=== PATIENT | male | born 1960 | race Caucasian/White ===

== ENCOUNTER 2020-05-14 14:44 | Emergency (ER) | payer MEDICARE, MEDICAID, SELFPAY ==
[2020-05-14 14:53] VITALS: BP 104/73; PULSE 83; RESP 20; TEMP 36.4; O2SAT 97; BMI 39.6
[2020-05-14] MEDS: Lidocaine 4 % Patch ADH..PATCH 1 PATCH TRANSDERMA (15:50)
[2020-05-14] MEDS: Ketorolac Tromethamine 30 MG/ML VIAL IM (15:50)
[2020-05-14 16:12] LABS: MANUAL DIFF FLAG NO
[2020-05-14 16:15] LABS: Basophils Absolute Auto 0.1 X10*3/uL (0.0-0.2); Basophils Percent Auto 0.4 % (0-2); Eosinophils Absolute Auto 0.2 X10*3/uL (0.0-0.4); Eosinophils Percent Auto 1.1 % (0-4); Hematocrit 38.8 % (42-52); Hemoglobin 12.7 g/dl (14.0-18.0); Imm Gran Abs Auto 0.02 X10*3/uL (0.00-0.03); Imm Gran Pct Auto 0.2 % (0.0-0.4); Lymphocytes Absolute Auto 1.8 X10*3/uL (1.2-4.9); Lymphocytes Percent Auto 13.9 % (20-40); Mean Corpuscular HGB Conc 32.7 g/dl (31.0-36.0); Mean Corpuscular Hemoglobin 27.6 pg (27.0-33.0); Mean Corpuscular Volume 84.3 fL (80-98); Mean Platelet Volume 10.3 fL (9.4-12.4); Monocytes Absolute Auto 0.7 X10*3/uL (0.1-1.2); Monocytes Percent Auto 5.1 % (2-11); Neutrophils Absolute Auto 10.5 X10*3/uL (2.0-8.3); Neutrophils Percent Auto 79.3 % (45-73); Platelet Count 195 X10*3/uL (160-400); Red Cell Distribution Width 15.3 % (11.0-16.0); White Blood Count 13.2 X10*3/uL (4.8-10.8)
[2020-05-14 16:16] LABS: Appearance Urine CLEAR; Color Urine YELLOW; Glucose Urine UA >=1000 MG/DL (NEG); Leukocyte Esterase Urine NEG (NEG); Nitrite Urine NEG (NEG); Specific Gravity - Urine 1.025 (1.005-1.025); Urine Blood NEG (NEG); Urine Ketones NEG (NEG); Urine Protein NEG (NEG-TRACE)
[2020-05-14 16:23] LABS: RBC Urine 0-2 /HPF (0); Squamous Epithelial Cell Urine 1+ /LPF; WBC Urine 0-2 /HPF (0-4)
[2020-05-14 16:35] LABS: Alanine Aminotransferase 14 U/L (0-40); Albumin Level 4.4 g/dL (3.5-5.0); Alkaline Phosphatase 92 U/L (39-117); Anion Gap 12 (12-20); Aspartate Amino Transferase 14 U/L (5-37); Bilirubin Direct < 0.2 mg/dL (0.0-0.5); Bilirubin Total 0.4 mg/dL (0.0-1.0); Blood Urea Nitrogen 14 mg/dL (9-16); Calcium 9.1 mg/dL (8.4-10.2); Carbon Dioxide 28 mmol/L (22-29); Chloride 106 mmol/L (96-108); Creatinine Clr Calc Pharmacy 96.7; Estimated Glomerular Filt Rate > 60; Glucose Random 127 mg/dL (60-115); Lipase 31 U/L (8-78); Potassium 4.5 mmol/l (3.3-5.1); Sodium 141 mmol/L (135-145); Total Protein 7.2 g/dL (6.5-8.0)
[2020-05-14 17:25] VITALS: BP 133/75; PULSE 68; RESP 18; TEMP 36.3; O2SAT 99
--- NOTE | 2020-05-14 17:54 | ED.ABDPAIN ---
HPI - Abdominal Pain General Chief Complaint: Abdominal Pain Stated Complaint: leg pain Time Seen by Provider: 05/14/20 15:18 Source: patient Mode of arrival: ambulatory Limitations: no limitations History of Present Illness HPI narrative: Left-sided flank pain for the past 3 days MD elicited complaint: flank pain Pertinent past history: kidney stones Onset (ago): day(s) Pain Consistency: constant Location: diffuse, L flank and R flank Severity: moderate Quality: aching Exacerbating factors: movement Relieving factors: rest Treatments prior to arrival: other (Has not tried anything OTC) Related Data Home Medications Medication Instructions Recorded Confirmed atorvastatin 1 tab PO DAILY 05/14/20 05/14/20 buprenorphine-naloxone [Suboxone] 1 strip SUBLINGUAL BID 05/14/20 05/14/20 gabapentin 1 tab PO TID 05/14/20 05/14/20 ibuprofen 1 tab PO TID 05/14/20 05/14/20 paroxetine HCl 1 tab PO QAM 05/14/20 05/14/20 trazodone 1 tab PO BEDTIME 05/14/20 05/14/20 Previous Rx's Medication Instructions Recorded pioglitazone 45 mg tablet 45 mg PO DAILY 90 Days #90 tab 05/07/20 omeprazole 20 mg capsule,delayed 20 mg PO DAILY 90 Days #90 cap 05/09/20 release cyclobenzaprine 10 mg PO BEDTIME PRN #20 tab 05/14/20 lidocaine 1 patch TOPICAL Q24H PRN #10 ea 05/14/20 Allergies Allergy/AdvReac Type Severity Reaction Status Date / Time No Known Allergies Allergy Verified 05/14/20 17:48 [No Known Allergies*] Review of Systems Review of Systems Constitutional: No Weight loss, No Fever, No Chills, No Night Sweats, No Fatigue, No Malaise ENT/Mouth: No Hearing loss, No Ear Pain, No Nasal Congestion, No Sinus Pain, No Hoarseness, No sore throat, No Rhinorrhea, No Swallowing Difficulty Eyes: No Eye Pain, No Swelling, No Redness, No Foreign Body, No Discharge, No Vision Changes Cardiovascular: No Chest Pain, No SOB, No Dyspnea on Exertion, No Orthopnea, No Edema, No Palpitations Respiratory: No Cough, No Sputum, No Wheezing, No Smoke Exposure, No Dyspnea Gastrointestinal: No Nausea, No Vomiting, No Diarrhea, No Constipation, No abdominal Pain, No Hematochezia, No Melena, + flank pain Genitourinary: No Dysuria, No Urinary Frequency, No Hematuria, No Urinary Incontinence, No Urgency, No Urinary Flow Changes, No Hesitancy Musculoskeletal: No joint pain, No Myalgias, No Joint Swelling Skin: No Skin Lesions, No rash Neuro: No Weakness, No Numbness, No Paresthesias, No Loss of Consciousness, No Dizziness, No Headache Psych: No Anxiety/Panic, No Depression, No SI/HI/AH/VH, No Social Issues, Heme/Lymph: No Bruising, No Bleeding,No Lymphadenopathy Endocrine: No Polyuria, No Polydipsia, No Temperature Intolerance Yes all other systems are reviewed and are negative Physical Exam Vital Signs: Vital Signs: Vital Signs Temp Pulse Resp BP Pulse Ox 05/14/20 17:25 97.4 F 68 18 133/75 99 05/14/20 14:53 97.6 F 83 20 104/73 97 Body Mass Index 39.6 Const: General: cooperative and healthy appearing; No acute distress or intoxicated appearing Nutritional Appearance: average body habitus Orientation/consciousness: patient oriented x3 HENMT: Head: Yes normal to inspection Ears: hearing grossly normal bilaterally Eyes: General: appearance normal, both eyes and all related structures Visual Francis: normal visual francis by confrontation Neck: Neck: Yes normal visual inspection and No tender Thyroid: Thyroid normal Chest: Chest palpation & inspection: normal inspection of the chest Resp: Effort & Inspection: normal respiratory effort Cardio: Jugular venous distension: no JVD GI: Inspection: Yes normal to inspection Percussion: Yes normal to percussion Auscultation: normal bowel sounds : General: Yes CVA tenderness and Yes no CVA tenderness Back/Spine/Pelvis: Other: Bilateral flank pain, pain reproducible in the paraspinal muscle regions bilaterally. No midline tenderness palpation. No step-off. Back: no CVA tenderness and CVA tenderness Skin: General skin exam: no rashes or lesions noted Neuro: General: patient oriented x3 Extrem: General: Yes normal to inspection Course Course Course Narrative: Labs show slight leukocytosis of 13 previous a baseline 11-12. Otherwise no derangement. CT of the abdomen pelvis shows no acute stone. Urine clean. Pain etiology musculoskeletal. Will discharge home with muscle relaxant and lidocaine patch. No low back pain red flags. No sinus symptoms saddle anesthesia/ cord compression. Ambulatory with steady straight gait. Stable for discharge. Findings/plan/follow-up reviewed. Agreeable. MDM - Abdominal Pain Differential Diagnosis Differential diagnosis: Likely abdominal pain, calculus of kidney, constipation and renal colic; Unlikely aortic dissection, acute appendicitis, bowel perforation, diverticulitis, endometriosis, gastroenteritis, gastritis, mesenteric ischemia, pancreatitis, peptic ulcer disease and small bowel obstruction Differential diagnosis narrative:: Lumbar muscle strain, osteoarthritis, DJD Lab Data Result diagrams: 05/14/20 16:08 05/14/20 16:08 Labs: Lab Results 05/14/20 05/14/20 05/14/20 Range/Units 16:08 16:08 16:08 WBC 13.2 H (4.8-10.8) X10*3/uL RBC 4.60 (4.60-5.80) X10*6/uL Hgb 12.7 L (14.0-18.0) g/dl Hct 38.8 L (42-52) % MCV 84.3 (80-98) fL MCH 27.6 (27.0-33.0) pg MCHC 32.7 (31.0-36.0) g/dl RDW 15.3 (11.0-16.0) % Plt Count 195 (160-400) X10*3/uL MPV 10.3 (9.4-12.4) fL Immature Gran % (Auto) 0.2 (0.0-0.4) % Neut % (Auto) 79.3 H (45-73) % Lymph % (Auto) 13.9 L (20-40) % [place] % (Auto) 5.1 (2-11) % Eos % (Auto) 1.1 (0-4) % Baso % (Auto) 0.4 (0-2) % Lymph # (Auto) 1.8 (1.2-4.9) X10*3/uL [place] # (Auto) 0.7 (0.1-1.2) X10*3/uL Eos # (Auto) 0.2 (0.0-0.4) X10*3/uL Baso # (Auto) 0.1 (0.0-0.2) X10*3/uL Abs Immat Gran (auto) 0.02 (0.00-0.03) X10*3/uL Absolute Neuts (auto) 10.5 H (2.0-8.3) X10*3/uL Absolute Nucleated RBC 0.000 (0.0-0.012) X10*3/uL Nucleated RBC % (auto) 0.0 (0.0-0.2) /100WBC Sodium 141 (135-145) mmol/L Potassium 4.5 (3.3-5.1) mmol/l Chloride 106 (96-108) mmol/L Carbon Dioxide 28 (22-29) mmol/L Anion Gap 12 (12-20) BUN 14 (9-16) mg/dL Creatinine 0.94 (0.5-1.4) mg/dL Estim Creat Clear Calc 96.7 Estimated GFR > 60 Random Glucose 127 H (60-115) mg/dL Calcium 9.1 (8.4-10.2) mg/dL Total Bilirubin 0.4 (0.0-1.0) mg/dL Direct Bilirubin < 0.2 (0.0-0.5) mg/dL AST 14 (5-37) U/L ALT 14 (0-40) U/L Alkaline Phosphatase 92 (39-117) U/L Total Protein 7.2 (6.5-8.0) g/dL Albumin 4.4 (3.5-5.0) g/dL Lipase 31 (8-78) U/L Urine Color YELLOW Urine Appearance CLEAR Urine pH 6.0 (5.0-8.0) Ur Specific [place] 1.025 (1.005-1.025) Urine Protein NEG (NEG-TRACE) MG/DL Urine Glucose (UA) >=1000 H (NEG) MG/DL Urine Ketones NEG (NEG) MG/DL Urine Blood NEG (NEG) Urine Nitrite NEG (NEG) Ur Leukocyte Esterase NEG (NEG) Urine RBC 0-2 (0) /HPF Urine WBC 0-2 (0-4) /HPF Ur Squamous Epith Cells 1+ /LPF Urine Bacteria NONE /LPF Imaging Data CT scan - abdomen: Radiologist's impression: [address] [address] [address] Scan Report Signed Patient: Nathaniel Lloyd#: [id number] : 9Acct:[id number] Age/Sex: 60 / MADM Date: 05/14/20 Loc: HO.ED Attending Dr: Ordering Physician: Son Hernandez NP Date of Service: 05/14/20 Procedure(s): CT abdomen pelvis wo con Accession Number(s): [id number] cc: Son Hernandez NP~ EXAMINATION: CT ABDOMEN AND PELVIS WITHOUT CONTRAST CLINICAL INFORMATION: Abdominal / flank pain. COMPARISON: 02/13/2020 TECHNIQUE: Multidetector volumetric imaging was performed from the superior aspect of the liver through the pubic symphysis. Sagittal and coronal reformatted images were obtained on the technologist's workstation. This CT examination was performed using dose optimization techniques as appropriate, variously including the following: *Automated exposure control *Adjustment of mA and/or kV according to patient size (this includes techniques or standardized protocols for targeted exams where dose is matched to indication/reason for exam; i.e. extremities or head) *Use of iterative reconstruction technique DLP: 643 mGy-cm FINDINGS: LUNG BASES: The visualized lung bases are unremarkable. LIVER, GALLBLADDER, AND BILIARY TREE: The liver is normal in size, shape, and attenuation. No focal hepatic lesion or biliary ductal dilatation is present. The gallbladder is unremarkable with no evidence of radiopaque gallstones, gallbladder wall thickening, or obvious pericholecystic inflammatory changes. PANCREAS: Unremarkable. SPLEEN: Unremarkable. ADRENAL GLANDS: Unremarkable. KIDNEYS AND URETERS: The kidneys are normal in size, shape, and attenuation. No hydronephrosis, hydroureter, or calculi seen. No perinephric stranding. BLADDER: Unremarkable. GASTROINTESTINAL TRACT: The small and large bowel are unremarkable. The appendix is unremarkable. ABDOMINAL WALL: No significant hernia is appreciated. LYMPH NODES: Normal. VASCULAR: Aorta is atherosclerotic. PELVIC VISCERA: Unremarkable. OSSEOUS STRUCTURES: Unremarkable. IMPRESSION: No acute findings. Dictated By:LIAT ANTUNEZ MD Signed By:<Electronically signed by LIAT ANTUNEZ MD in OV>05/14/201857 DD/ 21 TD/TT: [place] Representative: JUNITO Discharge Plan Discharge Clinical Impression: Acute flank pain Patient Disposition: Home, Self-Care Instructions: Acute Low Back Pain (ED) Prescriptions: New lidocaine 4 % adhesive patch,medicated 1 patch topical Q24H PRN (Reason: pain) Qty: 10 RF: 1 cyclobenzaprine 10 mg tablet 10 mg PO BEDTIME PRN (Reason: muscle spasm) Qty: 20 RF: 0 No Action pioglitazone 45 mg tablet 45 mg PO DAILY 90 Days Qty: 90 RF: 3 omeprazole 20 mg capsule,delayed release(DR/EC) 20 mg PO DAILY 90 Days Qty: 90 RF: 3 atorvastatin 40 mg tablet 1 tab PO DAILY RF: 0 gabapentin 600 mg tablet 1 tab PO TID RF: 0 trazodone 50 mg tablet 1 tab PO BEDTIME RF: 0 paroxetine HCl 20 mg tablet 1 tab PO QAM RF: 0 ibuprofen 600 mg tablet 1 tab PO TID RF: 0 buprenorphine-naloxone [Suboxone] 8-2 mg film 1 strip sublingual BID RF: 0 Interventions: ED Discharge Assessment Last Done: 05/14/20 19:55 Discharge Date/Time: 05/14/20 20:00 [facility] Past Medical History Medical History (Updated 05/15/20 @ 00:07 by Naheed Dutton) Diabetes mellitus GERD (gastroesophageal reflux disease) Social History Social History Alcohol intake: never Smoking Status: Light tobacco smoker Smoked in Last 30 Days: Yes Use of substances other than those prescribed or required for medical reasons: No Advance Directives: No Advance Directives Information Provided: Yes
--- NOTE | 2020-05-14 18:22 | CT_ITS ---
EXAMINATION: CT ABDOMEN AND PELVIS WITHOUT CONTRAST CLINICAL INFORMATION: Abdominal / flank pain. COMPARISON: 02/13/2020 TECHNIQUE: Multidetector volumetric imaging was performed from the superior aspect of the liver through the pubic symphysis. Sagittal and coronal reformatted images were obtained on the technologist's workstation. This CT examination was performed using dose optimization techniques as appropriate, variously including the following: *Automated exposure control *Adjustment of mA and/or kV according to patient size (this includes techniques or standardized protocols for targeted exams where dose is matched to indication/reason for exam; i.e. extremities or head) *Use of iterative reconstruction technique DLP: 643 mGy-cm FINDINGS: LUNG BASES: The visualized lung bases are unremarkable. LIVER, GALLBLADDER, AND BILIARY TREE: The liver is normal in size, shape, and attenuation. No focal hepatic lesion or biliary ductal dilatation is present. The gallbladder is unremarkable with no evidence of radiopaque gallstones, gallbladder wall thickening, or obvious pericholecystic inflammatory changes. PANCREAS: Unremarkable. SPLEEN: Unremarkable. ADRENAL GLANDS: Unremarkable. KIDNEYS AND URETERS: The kidneys are normal in size, shape, and attenuation. No hydronephrosis, hydroureter, or calculi seen. No perinephric stranding. BLADDER: Unremarkable. GASTROINTESTINAL TRACT: The small and large bowel are unremarkable. The appendix is unremarkable. ABDOMINAL WALL: No significant hernia is appreciated. LYMPH NODES: Normal. VASCULAR: Aorta is atherosclerotic. PELVIC VISCERA: Unremarkable. OSSEOUS STRUCTURES: Unremarkable. IMPRESSION: No acute findings.
== END 2020-05-14 20:00 | disposition home or self-care (01) ==
PROVIDERS: Nurse Practitioner Primary Care; Emergency Provider Internal Medicine
DX: R10.9 Unspecified abdominal pain (principal); M54.5 Low back pain; E11.9 Type 2 diabetes mellitus without complications; K21.9 Gastro-esophageal reflux disease without esophagitis; Z79.899 Other long term (current) drug therapy; F17.210 Nicotine dependence, cigarettes, uncomplicated; Z87.442 Personal history of urinary calculi
CPT/HCPCS: 36415; 74176; 80048; 80076; 81001; 83690; 85025; 96372; 99284; J1885

== ENCOUNTER 2020-08-21 19:31 | Emergency (ER) | payer MEDICARE, MEDICAID, SELFPAY ==
[2020-08-21 20:01] VITALS: BP 127/71; PULSE 84; RESP 18; TEMP 36.6; O2SAT 96; BMI 38.3
[2020-08-21 20:27] LABS: MANUAL DIFF FLAG NO
[2020-08-21 20:29] LABS: Basophils Percent Auto 0.4 % (0-2); Eosinophils Absolute Auto 0.1 X10*3/uL (0.0-0.4); Eosinophils Percent Auto 0.7 % (0-4); Hematocrit 38.7 % (42-52); Hemoglobin 12.8 g/dl (14.0-18.0); Imm Gran Abs Auto 0.03 X10*3/uL (0.00-0.03); Imm Gran Pct Auto 0.3 % (0.0-0.4); Lymphocytes Absolute Auto 1.7 X10*3/uL (1.2-4.9); Mean Corpuscular HGB Conc 33.1 g/dl (31.0-36.0); Mean Corpuscular Hemoglobin 27.7 pg (27.0-33.0); Mean Corpuscular Volume 83.8 fL (80-98); Mean Platelet Volume 9.9 fL (9.4-12.4); Monocytes Absolute Auto 0.4 X10*3/uL (0.1-1.2); Monocytes Percent Auto 3.6 % (2-11); Neutrophils Absolute Auto 8.5 X10*3/uL (2.0-8.3); Platelet Count 230 X10*3/uL (160-400); Red Blood Count 4.62 X10*6/uL (4.60-5.80); Red Cell Distribution Width 15.8 % (11.0-16.0); White Blood Count 10.7 X10*3/uL (4.8-10.8)
[2020-08-21 21:03] LABS: Anion Gap 12 (12-20); Blood Urea Nitrogen 16 mg/dL (9-16); Calcium 9.1 mg/dL (8.4-10.2); Carbon Dioxide 27 mmol/L (22-29); Chloride 104 mmol/L (96-108); Creatinine Clr Calc Pharmacy 99.2; Estimated Glomerular Filt Rate > 60; Glucose Random 131 mg/dL (60-115); Potassium 4.2 mmol/l (3.3-5.1); Sodium 139 mmol/L (135-145)
--- NOTE | 2020-08-22 02:51 | ED_ITS ---
HPI - General Adult General Chief complaint: General Medical Stated complaint: weakness Time Seen by Provider: 08/22/20 02:08 Source: patient and translator interpreter Mode of arrival: ambulatory History of Present Illness HPI narrative: This is a 60-year-old male with history diabetes, GERD, HLD, depression who presents with stating that at 8:00 p.m. last night he began developing a sensation of feeling ?hot inside that included bilateral upper arms and down the right side without associated fevers, chills, shortness of breath, chest pain/palpitations, vomiting, diarrhea, urinary pain/burning/frequency. Patient denies any urinary frequency or polydipsia and states that his sugars have been approximately 125. On further discussion patient sources that he lost his significant other last week. Related Data Home Medications Medication Instructions Recorded Confirmed buprenorphine-naloxone [Suboxone] 1 strip SUBLINGUAL BID 05/14/20 05/14/20 ibuprofen 1 tab PO TID 05/14/20 05/14/20 paroxetine HCl 1 tab PO QAM 05/14/20 05/14/20 Previous Rx's Medication Instructions Recorded pioglitazone 45 mg tablet 45 mg PO DAILY 90 Days #90 tab 05/07/20 omeprazole 20 mg capsule,delayed 20 mg PO DAILY 90 Days #90 cap 05/09/20 release cyclobenzaprine 10 mg PO BEDTIME PRN #20 tab 05/14/20 lidocaine 1 patch TOPICAL Q24H PRN #10 ea 05/14/20 trazodone 50 mg tablet 50 mg PO BEDTIME #30 tab 05/17/20 atorvastatin 40 mg tablet 40 mg PO DAILY #90 tab 07/02/20 gabapentin 600 mg tablet 600 mg PO TID #90 tab 07/02/20 Allergies Allergy/AdvReac Type Severity Reaction Status Date / Time No Known Allergies Allergy Verified 05/14/20 17:48 [No Known Allergies*] Review of Systems Review of Systems: Pertinent positives and negatives as stated in HPI 10 point review of systems is otherwise negative. [facility] Past Medical History Source: nursing notes reviewed Medical History Diabetes mellitus GERD (gastroesophageal reflux disease) Social History Social History Alcohol intake: never Smoking Status: Light tobacco smoker Advance Directives: No Physical Exam Vital Signs: Vital Signs: Last Vital Signs Temp 98 F 08/21/20 20:01 Pulse 65 08/22/20 05:46 Resp 18 08/22/20 05:46 BP 125/80 08/22/20 05:46 Pulse Ox 97 08/22/20 05:46 Body Mass Index 38.3 VITAL SIGNS: Reviewed. GENERAL: Well developed, well nourished, in no acute distress. HEAD: Normocephalic/atraumatic, EYES: PERRLA, EOMI EARS: Ext canals without abnormality NOSE: Nares patent bilateral OROPHARYNX: no oral lesions noted, posterior pharynx clear NECK: Supple, no adenopathy LUNGS: Normal breath sounds. No adventitious sounds or accessory muscle use. SpO2<96> CARDIOVASCULAR: Regular rate and rhythm without noted murmurs ABDOMEN: Soft, mild tenderness at the left lower quadrant without rebound, non- distended with bowel sounds. MUSCULOSKELETAL: No tenderness, deformities, or effusions noted on gross inspection. EXTREMITIES: No cyanosis, clubbing or edema. SKIN: Inspection of the skin reveals no rashes, ulcerations, jaundice, pallor, or petechiae. NEUROLOGIC: Alert and oriented x 4. Course Course Course Narrative: This is a 60-year-old male with history and clinical presentation suggestive of possible renal colic, diverticulitis, UTI. Review of all investigations is negative for any acute findings to better explain patient's presenting symptoms. CT scan was negative for any acute findings as well. All results and findings were discussed with patient at [facility] via asl interpreter and he was discharged in stable condition. Given his emotional state regarding the loss of his significant other he was provided with outpatient resources and encouraged to return to the emergency department should he develop any thoughts of worsening depression or wanting to harm himself. Currently he denies thoughts of suicidal ideation. Medical Decision Making Lab Data Result diagrams: 08/21/20 20:22 08/21/20 20:22 Labs: Lab Results 08/21/20 08/21/20 08/22/20 Range/Units 20:22 20:22 03:49 WBC 10.7 (4.8-10.8) X10*3/uL RBC 4.62 (4.60-5.80) X10*6/uL Hgb 12.8 L (14.0-18.0) g/dl Hct 38.7 L (42-52) % MCV 83.8 (80-98) fL MCH 27.7 (27.0-33.0) pg MCHC 33.1 (31.0-36.0) g/dl RDW 15.8 (11.0-16.0) % Plt Count 230 (160-400) X10*3/uL MPV 9.9 (9.4-12.4) fL Immature Gran % (Auto) 0.3 (0.0-0.4) % Neut % (Auto) 79.0 H (45-73) % Lymph % (Auto) 16.0 L (20-40) % [place] % (Auto) 3.6 (2-11) % Eos % (Auto) 0.7 (0-4) % Baso % (Auto) 0.4 (0-2) % Lymph # (Auto) 1.7 (1.2-4.9) X10*3/uL [place] # (Auto) 0.4 (0.1-1.2) X10*3/uL Eos # (Auto) 0.1 (0.0-0.4) X10*3/uL Baso # (Auto) 0.0 (0.0-0.2) X10*3/uL Abs Immat Gran (auto) 0.03 (0.00-0.03) X10*3/uL Absolute Neuts (auto) 8.5 H (2.0-8.3) X10*3/uL Absolute Nucleated RBC 0.000 (0.0-0.012) X10*3/uL Nucleated RBC % (auto) 0.0 (0.0-0.2) /100WBC Sodium 139 (135-145) mmol/L Potassium 4.2 (3.3-5.1) mmol/l Chloride 104 (96-108) mmol/L Carbon Dioxide 27 (22-29) mmol/L Anion Gap 12 (12-20) BUN 16 (9-16) mg/dL Creatinine 0.93 (0.5-1.4) mg/dL Estim Creat Clear Calc 99.2 Estimated GFR > 60 Random Glucose 131 H (60-115) mg/dL Calcium 9.1 (8.4-10.2) mg/dL Urine Color Urine Appearance Urine pH (5.0-8.0) Ur Specific [place] (1.005-1.025) Urine Protein (NEG-TRACE) MG/DL Urine Glucose (UA) (NEG) MG/DL Urine Ketones (NEG) MG/DL Urine Blood (NEG) Urine Nitrite (NEG) Ur Leukocyte Esterase (NEG) Urine Opiates Screen Not Detected (Not Detect) Ur Phencyclidine Scrn Not Detected (Not Detect) Ur Amphetamines Screen Not Detected (Not Detect) U Benzodiazepines Scrn Not Detected (Not Detect) Urine Cocaine Screen Not Detected (Not Detect) U Marijuana (THC) Screen Not Detected (Not Detect) 08/22/20 Range/Units 03:49 WBC (4.8-10.8) X10*3/uL RBC (4.60-5.80) X10*6/uL Hgb (14.0-18.0) g/dl Hct (42-52) % MCV (80-98) fL MCH (27.0-33.0) pg MCHC (31.0-36.0) g/dl RDW (11.0-16.0) % Plt Count (160-400) X10*3/uL MPV (9.4-12.4) fL Immature Gran % (Auto) (0.0-0.4) % Neut % (Auto) (45-73) % Lymph % (Auto) (20-40) % [place] % (Auto) (2-11) % Eos % (Auto) (0-4) % Baso % (Auto) (0-2) % Lymph # (Auto) (1.2-4.9) X10*3/uL [place] # (Auto) (0.1-1.2) X10*3/uL Eos # (Auto) (0.0-0.4) X10*3/uL Baso # (Auto) (0.0-0.2) X10*3/uL Abs Immat Gran (auto) (0.00-0.03) X10*3/uL Absolute Neuts (auto) (2.0-8.3) X10*3/uL Absolute Nucleated RBC (0.0-0.012) X10*3/uL Nucleated RBC % (auto) (0.0-0.2) /100WBC Sodium (135-145) mmol/L Potassium (3.3-5.1) mmol/l Chloride (96-108) mmol/L Carbon Dioxide (22-29) mmol/L Anion Gap (12-20) BUN (9-16) mg/dL Creatinine (0.5-1.4) mg/dL Estim Creat Clear Calc Estimated GFR Random Glucose (60-115) mg/dL Calcium (8.4-10.2) mg/dL Urine Color YELLOW Urine Appearance CLEAR Urine pH 7.5 (5.0-8.0) Ur Specific [place] 1.015 (1.005-1.025) Urine Protein NEG (NEG-TRACE) MG/DL Urine Glucose (UA) NEG (NEG) MG/DL Urine Ketones NEG (NEG) MG/DL Urine Blood NEG (NEG) Urine Nitrite NEG (NEG) Ur Leukocyte Esterase NEG (NEG) Urine Opiates Screen (Not Detect) Ur Phencyclidine Scrn (Not Detect) Ur Amphetamines Screen (Not Detect) U Benzodiazepines Scrn (Not Detect) Urine Cocaine Screen (Not Detect) U Marijuana (THC) Screen (Not Detect) ECG Data Attestation: I personally reviewed and interpreted this ECG as follows: Prior ECG tracings: not available for review Interpretation: Normal sinus rhythm, HR-61, no evidence of acute ischemia, VT/QRS/QTC are within normal limits. Discharge Plan Discharge Clinical Impression: Abdominal discomfort in left flank, Grief Depression Qualifiers: Depression Type: unspecified Qualified Code(s): F32.9 - Major depressive disorder, single episode, unspecified Patient Disposition: Home, Self-Care Instructions: Abdominal Pain (ED) Additional Instructions: Reanude todos los medicamentos caseros seg?n lo prescrito. No dude en regresar al departamento de emergencias si experimenta un empeoramiento del malestar abdominal, falta de aire, dolor en el pecho o sentimientos de abrumador emocional o pensamientos de hacerse da?o. Prescriptions: No Action pioglitazone 45 mg tablet 45 mg PO DAILY 90 Days Qty: 90 RF: 3 omeprazole 20 mg capsule,delayed release(DR/EC) 20 mg PO DAILY 90 Days Qty: 90 RF: 3 trazodone 50 mg tablet 50 mg PO BEDTIME Qty: 30 RF: 6 atorvastatin 40 mg tablet 40 mg PO DAILY Qty: 90 RF: 3 gabapentin 600 mg tablet 600 mg PO TID Qty: 90 RF: 5 paroxetine HCl 20 mg tablet 1 tab PO QAM RF: 0 ibuprofen 600 mg tablet 1 tab PO TID RF: 0 buprenorphine-naloxone [Suboxone] 8-2 mg film 1 strip sublingual BID RF: 0 lidocaine 4 % adhesive patch,medicated 1 patch topical Q24H PRN (Reason: pain) Qty: 10 RF: 1 cyclobenzaprine 10 mg tablet 10 mg PO BEDTIME PRN (Reason: muscle spasm) Qty: 20 RF: 0 Referrals: Physician,Unknown [Primary Care Provider] - 2 days (Re-evaluation for anxiety, emotional stress) Print Language: Egyptian
--- NOTE | 2020-08-22 02:51 | ECG_ITS ---
Test Reason : FLANK PAIN Blood Pressure : / mmHG Vent. Rate : 061 BPM Atrial Rate : 061 BPM P-R Int : 144 ms QRS Dur : 094 ms QT Int : 414 ms P-R-T Axes : 038 018 033 degrees QTc Int : 416 ms Normal sinus rhythm Normal ECG No previous ECGs available Referred By: Marcy Eden Electronically Signed By:ESCOBAR HDZ
--- NOTE | 2020-08-22 03:45 | CT_ITS ---
EXAMINATION: CT ABDOMEN AND PELVIS WITH CONTRAST CLINICAL INFORMATION: Left flank pain COMPARISON: 05/14/2020 TECHNIQUE: Multidetector volumetric images were obtained from the superior aspect of the liver through the pubic symphysis following administration 85 mL of Omnipaque 350 intravenous contrast. Sagittal and coronal reformatted images were obtained on the technologist's workstation. Oral contrast: No This CT examination was performed using dose optimization techniques as appropriate, variously including the following: *Automated exposure control *Adjustment of mA and/or kV according to patient size (this includes techniques or standardized protocols for targeted exams where dose is matched to indication/reason for exam; i.e. extremities or head) *Use of iterative reconstruction technique DLP: 646 mGy-cm FINDINGS: LUNG BASES: The visualized lung bases are unremarkable. LIVER, GALLBLADDER, AND BILIARY TREE: The liver is normal in size, shape, and attenuation. No focal hepatic lesion or biliary ductal dilatation is present. The gallbladder is unremarkable with no evidence of radiopaque gallstones, gallbladder wall thickening, or obvious pericholecystic inflammatory changes. PANCREAS: Unremarkable. SPLEEN: Unremarkable. ADRENAL GLANDS: Unremarkable. KIDNEYS AND URETERS: The kidneys are normal in size, shape, and attenuation. Subcentimeter hypodensity in the upper right kidney favors a cyst. No hydronephrosis, hydroureter, or obstructing calculi seen. No perinephric stranding. BLADDER: Unremarkable. GASTROINTESTINAL TRACT: The small and large bowel are unremarkable. The appendix is unremarkable. No free fluid or free air is seen. ABDOMINAL WALL: No significant hernia is appreciated. LYMPH NODES: Normal. VASCULAR: Scattered atherosclerotic calcifications are present. PELVIC VISCERA: Unremarkable. OSSEOUS STRUCTURES: Unremarkable. CT/CT abdomen pelvis w con IMPRESSION: No acute findings identified.
[2020-08-22 03:50] VITALS: BP 142/78; PULSE 62; RESP 16; O2SAT 96
[2020-08-22 04:00] LABS: Appearance Urine CLEAR; Color Urine YELLOW; Glucose Urine UA NEG (NEG); Leukocyte Esterase Urine NEG (NEG); Nitrite Urine NEG (NEG); PH 7.5 (5.0-8.0); Specific Gravity - Urine 1.015 (1.005-1.025); UACC Culture Trigger NO; Urine Blood NEG (NEG); Urine Ketones NEG (NEG); Urine Protein NEG (NEG-TRACE)
--- NOTE | 2020-08-22 04:12 | PC.NURSE ---
pt returned from ct.
[2020-08-22 04:22] LABS: Amphetamine Screen Urine Not Detected (Not Detect); Benzodiazepines Screen Urine Not Detected (Not Detect); Cannabinoid Screen Urine Not Detected (Not Detect); Cocaine Screen Urine Not Detected (Not Detect); Opiate Screen Urine Not Detected (Not Detect); Phencyclidine Screen Urine Not Detected (Not Detect)
[2020-08-22] MEDS: iohexoL 350 MG/ML 100 ML INFUS..BTL 85 ML IV (04:34)
[2020-08-22 05:46] VITALS: BP 125/80; PULSE 65; RESP 18; O2SAT 97
[2020-08-22 07:22] LABS: Barbiturates, Urine Not Detected (Not Detect)
== END 2020-08-22 06:08 | disposition home or self-care (01) ==
PROVIDERS: Emergency Provider Student in an Organized Health Care Education/Training Program
DX: R10.9 Unspecified abdominal pain (principal); F32.9 Major depressive disorder, single episode, unspecified; M79.602 Pain in left arm; M79.601 Pain in right arm; R53.1 Weakness; F17.200 Nicotine dependence, unspecified, uncomplicated; Z71.6 Tobacco abuse counseling; Z79.899 Other long term (current) drug therapy
CPT/HCPCS: 36415; 74177; 80048; 80307; 81003; 85025; 93005; 99284; Q9967

== ENCOUNTER 2020-11-15 13:21 | Emergency (ER) | payer MEDICARE, MEDICAID, SELFPAY ==
--- NOTE | ~2020-11-15 | XR_ITS ---
EXAMINATION: XR ABDOMEN KUB CLINICAL INDICATION: Constipation COMPARISON: CT scan of August 22, 2020 and KUB of August 26, 2018 TECHNIQUE: AP view of the abdomen. FINDINGS: No dilated loops of large or small bowel are evident. Stool and gas is seen throughout nondilated colon. There are a few gas-filled loops of small bowel evident about the right mid and lower abdomen. There is stool seen within the right and transverse colon without significant stool burden within the left colon. Psoas margins appear intact. No renal or ureteral calcifications identified. There is bilateral facet arthropathy L5-S1 with no suspicious destructive bony lesions identified. XR/XR abdomen 1V IMPRESSION: Nonobstructive bowel gas pattern. Moderate stool burden within the right and transverse colon.
[2020-11-15 13:45] VITALS: BP 135/85; PULSE 120; RESP 18; TEMP 37.2; O2SAT 96; BMI 32.3
[2020-11-15 14:41] LABS: COVID-19 Test Negative (Negative)
[2020-11-15 15:28] VITALS: BP 137/89; PULSE 86; RESP 18; TEMP 36.8; O2SAT 97
--- NOTE | 2020-11-15 15:32 | ED_ITS ---
HPI - General Adult General Chief complaint: General Medical Stated complaint: foot pain, Time Seen by Provider: 11/15/20 15:32 Source: patient Mode of arrival: ambulatory Limitations: no limitations History of Present Illness HPI narrative: 60-year-old with below noted past medical history including not insulin-dependent diabetes, diabetic neuropathy along with other history as noted below who presents with constellation of symptoms including states that his testicles has been more sweaty and usually this is indication that his glucose is elevated, additionally he also states that he has burning like sensation at the tip of the toes he has this chronically and sometimes his gabapentin works and sometimes does not and he just had his dose increased by his primary care doctor. Lastly he reports that he has not slept in 2 days and feels constipated, there is no associated nausea for watery rectal discharge. Onset (ago): day(s) Radiation: non-radiation Severity: mild Relieving factors: none Associated symptoms: denies other symptoms Treatments prior to arrival: none Related Data Home Medications Medication Instructions Recorded Confirmed buprenorphine-naloxone [Suboxone] 1 strip SUBLINGUAL BID 05/14/20 05/14/20 ibuprofen 1 tab PO TID 05/14/20 05/14/20 paroxetine HCl 1 tab PO QAM 05/14/20 05/14/20 Previous Rx's Medication Instructions Recorded pioglitazone 45 mg tablet 45 mg PO DAILY 90 Days #90 tab 05/07/20 omeprazole 20 mg capsule,delayed 20 mg PO DAILY 90 Days #90 cap 05/09/20 release cyclobenzaprine 10 mg PO BEDTIME PRN #20 tab 05/14/20 lidocaine 1 patch TOPICAL Q24H PRN #10 ea 05/14/20 trazodone 50 mg tablet 50 mg PO BEDTIME #30 tab 05/17/20 atorvastatin 40 mg tablet 40 mg PO DAILY #90 tab 07/02/20 gabapentin 600 mg tablet 600 mg PO TID #90 tab 07/02/20 docusate sodium [Colace] 100 mg PO DAILY #14 cap 11/15/20 polyethylene glycol 3350 [Miralax] 17 g PO DAILY PRN #119 g 11/15/20 Allergies Allergy/AdvReac Type Severity Reaction Status Date / Time No Known Allergies Allergy Verified 11/15/20 13:43 [No Known Allergies*] Review of Systems Review of Systems: Constitutional: No Weight loss, No Fever, No Chills, No Night Sweats, No Fatigue, No Malaise ENT/Mouth: No Hearing loss, No Ear Pain, No Nasal Congestion, No Sinus Pain, No Hoarseness, No sore throat, No Rhinorrhea, No Swallowing Difficulty Eyes: No Eye Pain, No Swelling, No Redness, No Foreign Body, No Discharge, No Vision Changes Cardiovascular: No Chest Pain, No SOB, No Dyspnea on Exertion, No Orthopnea, No Edema, No Palpitations Respiratory: No Cough, No Sputum, No Wheezing, No Smoke Exposure, No Dyspnea Gastrointestinal: No Nausea, No Vomiting, No Diarrhea, + Constipation, No abdominal Pain, No Hematochezia, No Melena Genitourinary: no irregular bleeding, No Dysuria, No Urinary Frequency, No Hematuria, No Urinary Incontinence, No Urgency, No Flank Pain, No Urinary Flow Changes, No Hesitancy Musculoskeletal: No joint pain, No Myalgias, No Joint Swelling Skin: No Skin Lesions, No rash Neuro: No Weakness, No Numbness, No Paresthesias, No Loss of Consciousness, No Dizziness, No Headache Psych: No Anxiety/Panic, No Depression, No SI/HI/AH/VH, No Social Issues Heme/Lymph: No Bruising, No Bleeding,No Lymphadenopathy Endocrine: No Polyuria, No Polydipsia, No Temperature Intolerance , polyphasia Yes all other systems are reviewed and are negative [facility] Past Medical History Medical History Diabetes mellitus GERD (gastroesophageal reflux disease) Social History Social History Alcohol intake: never Smoking Status: Current every day smoker Use of substances other than those prescribed or required for medical reasons: No Advance Directives: No Advance Directives Information Provided: No Physical Exam Vital Signs: Vital Signs: Last Vital Signs Temp 98.4 F 11/15/20 16:19 Pulse 88 11/15/20 16:19 Resp 18 11/15/20 16:19 BP 116/78 11/15/20 16:19 Pulse Ox 96 11/15/20 16:19 Body Mass Index 32.3 Reviewed Const: General: cooperative and healthy appearing; No acute distress or intoxicated appearing Nutritional Appearance: average body habitus Rush entation/consciousness: patient oriented x3 HENMT: Head: Yes normal to inspection Ears: hearing grossly normal bilaterally Eyes: General: appearance normal, both eyes and all related structures Visual Francis: normal visual francis by confrontation Neck: Neck: Yes normal visual inspection, No positive Brudzinski's sign, No positive Kernig's sign and No tender Thyroid: Thyroid normal Chest: Chest palpation & inspection: normal inspection of the chest Resp: Effort & Inspection: normal respiratory effort Auscultation: clear to auscultation bilaterally Cardio: Jugular venous distension: no JVD Rhythm: regular rhythm Heart sounds: S1 normal heart sound present and S2 normal heart sound present GI: Inspection: Yes normal to inspection Palpation (GI): Soft to palpation, nontender, no guarding, not rigid, hepatosplenomegaly present, no hepatosplenomegaly, no hepatomegaly, no splenomegaly, no hernias, no masses, no pulsatile masses and No Ascites present Percussion: Yes normal to percussion Auscultation: normal bowel sounds : General: Yes no CVA tenderness Back/Spine/Pelvis: Back: no CVA tenderness Skin: General skin exam: no rashes or lesions noted Neuro: General: patient oriented x3 Extrem: General: Yes normal to inspection Course Course Course Narrative: Labs stable/chronic appearing. Eating drinking well. Stable for discharge. Medical Decision Making Lab Data Result diagrams: 11/15/20 16:04 11/15/20 16:04 Labs: Lab Results 11/15/20 11/15/20 11/15/20 Range/Units 13:59 16:04 16:04 WBC 11.4 H (4.8-10.8) X10*3/uL RBC 5.09 (4.60-5.80) X10*6/uL Hgb 14.0 (14.0-18.0) g/dl Hct 42.5 (42-52) % MCV 83.5 (80-98) fL MCH 27.5 (27.0-33.0) pg MCHC 32.9 (31.0-36.0) g/dl RDW 15.2 (11.0-16.0) % Plt Count 236 (160-400) X10*3/uL MPV 10.9 (9.4-12.4) fL Immature Gran % (Auto) 0.3 (0.0-0.4) % Neut % (Auto) 72.1 (45-73) % Lymph % (Auto) 22.2 (20-40) % Henderson % (Auto) 4.8 (2-11) % Eos % (Auto) 0.3 (0-4) % Baso % (Auto) 0.3 (0-2) % Lymph # (Auto) 2.5 (1.2-4.9) X10*3/uL Henderson # (Auto) 0.6 (0.1-1.2) X10*3/uL Eos # (Auto) 0.0 (0.0-0.4) X10*3/uL Baso # (Auto) 0.0 (0.0-0.2) X10*3/uL Abs Immat Gran (auto) 0.03 (0.00-0.03) X10*3/uL Absolute Neuts (auto) 8.3 (2.0-8.3) X10*3/uL Absolute Nucleated RBC 0.000 (0.0-0.012) X10*3/uL Nucleated RBC % (auto) 0.0 (0.0-0.2) /100WBC Sodium 142 (135-145) mmol/L Potassium 4.5 (3.3-5.1) mmol/L Chloride 106 (96-108) mmol/L Carbon Dioxide 26 (22-29) mmol/L Anion Gap 15 (12-20) BUN 19 H (9-16) mg/dL Creatinine 1.02 (0.5-1.4) mg/dL Estim Creat Clear Calc 80.2 Estimated GFR > 60 Random Glucose 124 H (60-115) mg/dL Calcium 9.8 D (8.4-10.2) mg/dL Total Bilirubin 0.4 (0.0-1.0) mg/dL AST 16 (5-37) U/L ALT 19 (0-40) U/L Alkaline Phosphatase 90 (39-117) U/L Total Protein 8.2 H (6.5-8.0) g/dL Albumin 4.9 (3.5-5.0) g/dL Urine Color Urine Appearance Urine pH (5.0-8.0) Ur Specific Hope (1.005-1.025) Urine Protein (NEG-TRACE) MG/DL Urine Glucose (UA) (NEG) MG/DL Urine Ketones (NEG) MG/DL Urine Blood (NEG) Urine Nitrite (NEG) Ur Leukocyte Esterase (NEG) Urine RBC (0) /HPF Urine WBC (0-4) /HPF Ur Squamous Epith Cells /LPF Urine Bacteria /LPF Urine Mucus /LPF COVID-19 (DEAN) Negative (Negative) COVID-19 Clin Com See Note 11/15/20 Range/Units 16:04 WBC (4.8-10.8) X10*3/uL RBC (4.60-5.80) X10*6/uL Hgb (14.0-18.0) g/dl Hct (42-52) % MCV (80-98) fL MCH (27.0-33.0) pg MCHC (31.0-36.0) g/dl RDW (11.0-16.0) % Plt Count (160-400) X10*3/uL MPV (9.4-12.4) fL Immature Gran % (Auto) (0.0-0.4) % Neut % (Auto) (45-73) % Lymph % (Auto) (20-40) % Henderson % (Auto) (2-11) % Eos % (Auto) (0-4) % Baso % (Auto) (0-2) % Lymph # (Auto) (1.2-4.9) X10*3/uL Henderson # (Auto) (0.1-1.2) X10*3/uL Eos # (Auto) (0.0-0.4) X10*3/uL Baso # (Auto) (0.0-0.2) X10*3/uL Abs Immat Gran (auto) (0.00-0.03) X10*3/uL Absolute Neuts (auto) (2.0-8.3) X10*3/uL Absolute Nucleated RBC (0.0-0.012) X10*3/uL Nucleated RBC % (auto) (0.0-0.2) /100WBC Sodium (135-145) mmol/L Potassium (3.3-5.1) mmol/L Chloride (96-108) mmol/L Carbon Dioxide (22-29) mmol/L Anion Gap (12-20) BUN (9-16) mg/dL Creatinine (0.5-1.4) mg/dL Estim Creat Clear Calc Estimated GFR Random Glucose (60-115) mg/dL Calcium (8.4-10.2) mg/dL Total Bilirubin (0.0-1.0) mg/dL AST (5-37) U/L ALT (0-40) U/L Alkaline Phosphatase (39-117) U/L Total Protein (6.5-8.0) g/dL Albumin (3.5-5.0) g/dL Urine Color YELLOW Urine Appearance CLEAR Urine pH 5.5 (5.0-8.0) Ur Specific Hope >= 1.030 H (1.005-1.025) Urine Protein 1+ H (NEG-TRACE) MG/DL Urine Glucose (UA) 250 H (NEG) MG/DL Urine Ketones NEG (NEG) MG/DL Urine Blood NEG (NEG) Urine Nitrite NEG (NEG) Ur Leukocyte Esterase NEG (NEG) Urine RBC 0 (0) /HPF Urine WBC 0 (0-4) /HPF Ur Squamous Epith Cells NONE /LPF Urine Bacteria 1+ /LPF Urine Mucus 1+ /LPF COVID-19 (DEAN) (Negative) COVID-19 Clin Com Discharge Plan Discharge Clinical Impression: Constipation, Diabetes, Neuropathy Patient Disposition: Home, Self-Care Instructions: Constipation (ED), Diabetic Peripheral Neuropathy (ED) Additional Instructions: Take gabapentin as prescribed Start your stool softener, high-fiber diet, drink plenty of fluids Monitor sugar twice a day and keep a log Check fasting blood sugar in the morning Follow diabetic diet Return if any abdominal pain, nausea, vomiting, diarrhea, chest pain, shortness of breath or any other concerning symptoms otherwise follow up with primary care doctor as discussed Thank you Prescriptions: New polyethylene glycol 3350 [Miralax] 17 gram/dose powder 17 g PO DAILY PRN (Reason: laxative effect) Qty: 119 RF: 1 docusate sodium [Colace] 100 mg capsule 100 mg PO DAILY Qty: 14 RF: 0 No Action pioglitazone 45 mg tablet 45 mg PO DAILY 90 Days Qty: 90 RF: 3 omeprazole 20 mg capsule,delayed release(DR/EC) 20 mg PO DAILY 90 Days Qty: 90 RF: 3 trazodone 50 mg tablet 50 mg PO BEDTIME Qty: 30 RF: 6 atorvastatin 40 mg tablet 40 mg PO DAILY Qty: 90 RF: 3 gabapentin 600 mg tablet 600 mg PO TID Qty: 90 RF: 5 paroxetine HCl 20 mg tablet 1 tab PO QAM RF: 0 ibuprofen 600 mg tablet 1 tab PO TID RF: 0 buprenorphine-naloxone [Suboxone] 8-2 mg film 1 strip sublingual BID RF: 0 lidocaine 4 % adhesive patch,medicated 1 patch topical Q24H PRN (Reason: pain) Qty: 10 RF: 1 cyclobenzaprine 10 mg tablet 10 mg PO BEDTIME PRN (Reason: muscle spasm) Qty: 20 RF: 0 Referrals: Antonia Kay MD [Primary Care Provider] - 1 week Discharge Date/Time: 11/15/20 17:57
[2020-11-15 16:11] LABS: MANUAL DIFF FLAG NO
--- NOTE | 2020-11-15 16:14 | PC.NURSE ---
patient a&ox3, labs drawn, urine obtained, vss, will continue to monitor.
[2020-11-15 16:16] LABS: Basophils Percent Auto 0.3 % (0-2); Eosinophils Percent Auto 0.3 % (0-4); Hematocrit 42.5 % (42-52); Imm Gran Abs Auto 0.03 X10*3/uL (0.00-0.03); Imm Gran Pct Auto 0.3 % (0.0-0.4); Lymphocytes Absolute Auto 2.5 X10*3/uL (1.2-4.9); Lymphocytes Percent Auto 22.2 % (20-40); Mean Corpuscular HGB Conc 32.9 g/dl (31.0-36.0); Mean Corpuscular Hemoglobin 27.5 pg (27.0-33.0); Mean Corpuscular Volume 83.5 fL (80-98); Mean Platelet Volume 10.9 fL (9.4-12.4); Monocytes Absolute Auto 0.6 X10*3/uL (0.1-1.2); Monocytes Percent Auto 4.8 % (2-11); Neutrophils Absolute Auto 8.3 X10*3/uL (2.0-8.3); Neutrophils Percent Auto 72.1 % (45-73); Platelet Count 236 X10*3/uL (160-400); Red Blood Count 5.09 X10*6/uL (4.60-5.80); Red Cell Distribution Width 15.2 % (11.0-16.0); White Blood Count 11.4 X10*3/uL (4.8-10.8)
[2020-11-15 16:19] VITALS: BP 116/78; PULSE 88; RESP 18; TEMP 36.9; O2SAT 96
[2020-11-15 16:21] LABS: Glucose Urine UA 250 MG/DL (NEG); Leukocyte Esterase Urine NEG (NEG); Nitrite Urine NEG (NEG); PH 5.5 (5.0-8.0); Specific Gravity - Urine >= 1.030 (1.005-1.025); Urine Blood NEG (NEG); Urine Ketones NEG (NEG); Urine Protein 1+ MG/DL (NEG-TRACE)
[2020-11-15 16:24] LABS: Appearance Urine CLEAR; Color Urine YELLOW
[2020-11-15 16:27] LABS: Bacteria Urine 1+ /LPF; Mucus Urine 1+ /LPF; RBC Urine 0 /HPF (0); WBC Urine 0 /HPF (0-4)
[2020-11-15 16:38] LABS: Alanine Aminotransferase 19 U/L (0-40); Albumin Level 4.9 g/dL (3.5-5.0); Alkaline Phosphatase 90 U/L (39-117); Anion Gap 15 (12-20); Aspartate Amino Transferase 16 U/L (5-37); Bilirubin Total 0.4 mg/dL (0.0-1.0); Blood Urea Nitrogen 19 mg/dL (9-16); Calcium 9.8 mg/dL (8.4-10.2); Carbon Dioxide 26 mmol/L (22-29); Chloride 106 mmol/L (96-108); Creatinine Clr Calc Pharmacy 80.2; Estimated Glomerular Filt Rate > 60; Glucose Random 124 mg/dL (60-115); Potassium 4.5 mmol/L (3.3-5.1); Sodium 142 mmol/L (135-145); Total Protein 8.2 g/dL (6.5-8.0)
== END 2020-11-15 17:57 | disposition home or self-care (01) ==
PROVIDERS: Nurse Practitioner Primary Care; Emergency Provider Internal Medicine; PCP Internal Medicine
DX: K59.00 Constipation, unspecified (principal); E11.42 Type 2 diabetes mellitus with diabetic polyneuropathy; Z20.822 Contact with and (suspected) exposure to COVID-19; F17.200 Nicotine dependence, unspecified, uncomplicated; F11.20 Opioid dependence, uncomplicated
CPT/HCPCS: 36415; 74018; 80053; 81001; 85025; 87635; 99283; 99284

== ENCOUNTER → 2020-12-05 12:25 | Outpatient (BNVA) | payer MEDICARE, MEDICAID, SELFPAY | PROVIDERS: PCP Internal Medicine; Visit Provider Nurse Practitioner | DX: Z12.11 Encounter for screening for malignant neoplasm of colon (principal); R10.9 Unspecified abdominal pain; R15.9 Full incontinence of feces; R11.0 Nausea; E11.9 Type 2 diabetes mellitus without complications; K21.9 Gastro-esophageal reflux disease without esophagitis; R68.81 Early satiety; R63.4 Abnormal weight loss; K75.9 Inflammatory liver disease, unspecified; Z83.79 Family history of other diseases of the digestive system; Z80.0 Family history of malignant neoplasm of digestive organs; Z51.81 Encounter for therapeutic drug level monitoring; Z79.899 Other long term (current) drug therapy | CPT/HCPCS: Q3014 ==

== ENCOUNTER 2020-12-11 12:46 | Outpatient (REF) | payer MEDICARE, MEDICAID, SELFPAY ==
[2020-12-12 08:17] LABS: HBS Num1 114.56 mIU/mL (0-7.99); HBc Num1 9.96 S/CO (0.00-0.79); HBsAGNum1 0.23 S/CO (0.00-0.99); Hepatitis B Surface Antigen Negative (Negative); ~Hepatitis B Surface Antibody REACTIVE (Nonreactive)
[2020-12-12 08:37] LABS: HIV AB/AG Nonreactive (Nonreactive); HIV Num 1 0.04 S/CO (0.00-0.99); Hepatitis A Antibody IgM 0.61 Index (0-0.79); ~HepC Num1 0.14 S/CO (0.00-0.79); ~Hepatitis A Antibody IgM Nonreactive (Nonreactive); ~Hepatitis C Antibody Nonreactive (Nonreactive)
[2020-12-12 09:53] LABS: HBc Num2 10.32 S/CO; HBc Num3 10.25 S/CO; Hepatitis B Core Antibody Reactive (Nonreactive)
== END 2020-12-11 12:47 | disposition home or self-care (01) ==
LOC: HO.LAB 12:46
PROVIDERS: Visit Provider Nurse Practitioner
DX: R68.81 Early satiety (principal); R63.4 Abnormal weight loss; R11.0 Nausea; K75.9 Inflammatory liver disease, unspecified
CPT/HCPCS: 36415; 86704; 86706; 86709; 86803; 87340; 87389

== ENCOUNTER 2021-02-13 07:22 | Day surgery (SDC) | payer MEDICARE, MEDICAID, SELFPAY ==
[2021-02-08 10:13] VITALS: BMI 34.3
--- NOTE | 2021-02-12 09:57 | HO.ANESPROP2 ---
Documented by User: Inez Ramirez 02/12/21 09:59 HPI - Anesthesia Eval Consult details Narrative: 61yo M for Colonoscopy Suboxone daily PMFSH Active Problems Active Problems: All Active Problems (Updated 02/08/21 @ 10:08 by Georgie Morse) Colon cancer screening (Acute) Abdominal cramping (Acute) Rectal leakage (Acute) Nausea (Acute) Family history of peptic ulcer (Acute) Family history of colon cancer (Acute) Early satiety (Acute) Weight loss, abnormal (Acute) Encounter for monitoring Suboxone maintenance therapy (Acute) Hepatitis B core antibody positive (Acute) GERD (gastroesophageal reflux disease) (Acute) Diabetes mellitus (Acute) Past Medical History Medical History Anxiety Depression Diabetes mellitus Elevated cholesterol GERD (gastroesophageal reflux disease) Neuropathy Opioid dependence Family History Family History Mother No problems noted. Father No problems noted. Sister No problems noted. Surgical History Surgical History Hx of colonoscopy Hx of knee surgery Social History Social History Household Members: None Alcohol intake: former Year quit: 2018 Patient Tobacco Use Status: Current everyday Tobacco user Cigarettes Per Day: 10 Use of substances other than those prescribed or required for medical reasons: No Are you DNR?: No Advance Directives: No Advance Directives Information Provided: Yes Current occupational status: disabled Meds Allergies Allergy/AdvReac Type Severity Reaction Status Date / Time No Known Allergies Allergy Verified 02/13/21 07:34 [No Known Allergies*] Home Medications Medication Instructions Recorded Confirmed Last Taken Type buprenorphine-naloxone [Suboxone] 1 strip SUBLINGUAL BID 05/14/20 02/08/21 02/13/21 06:30 History ibuprofen 1 tab PO TID 05/14/20 05/14/20 05/14/20 History paroxetine HCl 1 tab PO QAM 05/14/20 05/14/20 05/14/20 History duloxetine 1 cap PO DAILY 02/08/21 02/08/21 02/13/21 06:30 History gabapentin 900 mg PO BID 02/08/21 02/08/21 02/13/21 06:30 History Exam Exam Date and Time: February 12, 2021 0957 Height,Weight and Vital Signs: Height 5 ft 6 in Weight 96.5 kg Pertinent Lab Results Pertinent Lab Results: Laboratory Tests 11/15/20 11/15/20 16:04 16:04 WBC 11.4 H Hgb 14.0 Hct 42.5 Plt Count 236 Sodium 142 Potassium 4.5 Chloride 106 Carbon Dioxide 26 BUN 19 H Creatinine 1.02 Narrative Narrative: EKG 08/2020 Vent. Rate : 061 BPM Atrial Rate : 061 BPM P-R Int : 144 ms QRS Dur : 094 ms QT Int : 414 ms P-R-T Axes : 038 018 033 degrees QTc Int : 416 ms Normal sinus rhythm Normal ECG No previous ECGs available Assessment and Plan Assessment Anesthesia Assessment: Chart Reviewed Documented by User: Brooklyn Todd 02/13/21 08:36 PMFSH Past Medical History Medical History Anxiety Depression Diabetes mellitus Elevated cholesterol GERD (gastroesophageal reflux disease) Neuropathy Opioid dependence Family History Family History Mother No problems noted. Father No problems noted. Sister No problems noted. Surgical History Surgical History Hx of colonoscopy Hx of knee surgery Social History Social History Household Members: None Alcohol intake: former Year quit: 2017 Patient Tobacco Use Status: Current everyday Tobacco user Cigarettes Per Day: 10 Use of substances other than those prescribed or required for medical reasons: No Are you DNR?: No Advance Directives: No Advance Directives Information Provided: Yes Current occupational status: disabled Meds Allergies Allergy/AdvReac Type Severity Reaction Status Date / Time No Known Allergies Allergy Verified 02/13/21 07:34 [No Known Allergies*] Home Medications Medication Instructions Recorded Confirmed Last Taken Type buprenorphine-naloxone [Suboxone] 1 strip SUBLINGUAL BID 05/14/20 02/08/21 02/13/21 06:30 History ibuprofen 1 tab PO TID 05/14/20 05/14/20 05/14/20 History paroxetine HCl 1 tab PO QAM 05/14/20 05/14/20 05/14/20 History duloxetine 1 cap PO DAILY 02/08/21 02/08/21 02/13/21 06:30 History gabapentin 900 mg PO BID 02/08/21 02/08/21 02/13/21 06:30 History Exam Airway Mallampati Class: II TM Dist: >3cm Neck ROM: Full Assessment and Plan Assessment Anesthesia Assessment: Anesthesia Plan Discussed and Chart Reviewed Final Anesthetic Review NPO: Yes ASA Class: II Final Preanesthetic Review: No Changes in Pt Med Stat, Meds/Allgs Chart Reviewed, Consent Obtained/Reviewed and Anes Risks/Benef Reviewed Patient Risk: Low Procedure Risk: Low Assessment/Block/Sedation in SS: Assess/Block/Sedation-SS Anesthetic Plan Anesthetic Plan: MAC: Disposition: Standard PACU
[2021-02-13 07:59] VITALS: BP 136/79; PULSE 72; RESP 16; TEMP 36.9; O2SAT 98
[2021-02-13] MEDS: Lactated Ringers 1,000 ML 100 ML IVCONT (08:12)
[2021-02-13 08:33] LABS: Glucose, Whole Blood 120 mg/dL (60-115)
--- NOTE | 2021-02-13 08:34 | P.HPSUR_ITS ---
Pre-Procedural Eval Section A Date of Service: 02/13/21 Section B Chief Complaint: Screening Relevant Family History (Specify if Yes): Yes Relevant Social History: Tobacco Use Present Medications: see Short Stay Collaborative assessment Medical History: Significant History (Anxiety Depression Diabetes mellitus Elevated cholesterol GERD (gastroesophageal reflux disease) Neuropathy Opioid dependence) History of Previous Operations: Relevant previous surgery/procedure and date(s) (colonosocpy, knee surgery) Allergies: Allergies Allergy/AdvReac Type Severity Reaction Status Date / Time No Known Allergies Allergy Verified 02/13/21 07:34 [No Known Allergies*] Review of Systems Sugical H&P ROS: Negative: Constitution, Cardiovascular, Respiratory, Neurological, Psychiatric, Hem-Onc, Allergic/Immunologic, Gastrointestinal, Mayte tourinary, Musculoskeletal, Integumentary, Endocrine and Eyes/Ears/Nose/Throat Exam Surgical H&P Exam: Normal: HEENT, Normal: Heart, Normal: Lungs, Normal: Extremities, Normal: Abdomen, Normal: Skin and Normal: Neurological Plan Diagnosis/Plan: Unchanged I have reviewed the history and physical and performed a pertinent physical examination on my patient. No changes have occurred unless specified.
[2021-02-13 10:10] VITALS: BP 95/69; PULSE 66; RESP 16; TEMP 36.1; O2SAT 97
--- NOTE | 2021-02-13 10:10 | P.BOP_ITS ---
Brief Operative Note Date of Service: 02/13/21 Pre-op diagnosis: colon screening Post-op diagnosis: same Procedure: see op note Surgeon: Fabián Caraballo MD Anesthesia: MAC Was an Autoclave Operator used for this Procedure?: No Estimated blood loss (mL): 0 Condition: stable Disposition: PACU
--- NOTE | 2021-02-13 10:10 | W.PM.OPN ---
Operative Note Operative Note Date of Service: 02/13/21 Narrative: Operative Information Procedure Description: Colonoscopy COLONOSCOPY Instrument: Olympus variable stiffness pediatric scope 190L Colonoscopy Monitoring: Vital signs and clinical assessment, continuous EKG monitoring, Pulse oximetry, Carbon Dioxide monitoring and blood pressure monitoring were done throughout the procedure. Colon withdrawal time was 6 minutes. Procedure: The patient was placed in the left lateral decubitis position and pre-procedure medications were administered. After a digital rectal examination of the ano-rectum, the video colonoscope was inserted into the rectum and advanced through the colon to the cecum/TI. The colonoscope was slowly withdrawn in a retrograde panoramic fashion and the colon mucosa was carefully examined including a retroflexed view of the rectum. Findings and interventions are described below. Procedure Difficulty:easy Findings: Terminal Ileum-normal Cecum:normal Ascending Colon: normal Transverse Colon -normal Descending Colon:normal Sigmoid Colon: normal Rectum: Retroflexion with small internal hemorrhoids, grade I Anorectum - normal Colon preparation: [place] Bowel Preparation Scale Right colon; 2 Transverse colon: 3 Left colon; 2 (0 = Unprepared colon segment with mucosa not seen due to solid stool that cannot be cleared. 1 = Portion of mucosa of the colon segment seen, but other areas of the colon segment not well seen due to staining, residual stool and/or opaque liquid. 2 = Minor amount of residual staining, small fragments of stool and/or opaque liquid, but mucosa of colon segment seen well. 3 = Entire mucosa of colon segment seen well with no residual staining, small fragments of stool or opaque liquid) Impression and Post Procedure Diagnosis: internal hemorrhoids Plan: High fiber diet leaflet Avoid straining at stool, epsom salts and sitz bath, anusol supps or cream prn Repeat Colonoscopy in 5 years due to FH of CRC or earlier if clinically indicated Above findings were reviewed with the patient and relevant handouts were provided if indicated.
[2021-02-13 10:25] VITALS: BP 120/75; PULSE 77; RESP 17; TEMP 36.4; O2SAT 100
== END 2021-02-13 11:34 | disposition home or self-care (01) ==
PROVIDERS: Visit Provider Internal Medicine Gastroenterology
PROC: 0DJD8ZZ Inspection of Lower Intestinal Tract, Via Natural or Artificial Opening Endoscopic (ICD-10-PCS; CPT 45378; principal; 2021-02-13 09:20)
DX: Z12.11 Encounter for screening for malignant neoplasm of colon (principal); Z80.0 Family history of malignant neoplasm of digestive organs; K64.0 First degree hemorrhoids; K21.9 Gastro-esophageal reflux disease without esophagitis; E11.40 Type 2 diabetes mellitus with diabetic neuropathy, unspecified; E78.00 Pure hypercholesterolemia, unspecified; F32.9 Major depressive disorder, single episode, unspecified; Z79.899 Other long term (current) drug therapy; F11.20 Opioid dependence, uncomplicated; F17.210 Nicotine dependence, cigarettes, uncomplicated
CPT/HCPCS: G0105; 82947

== ENCOUNTER 2021-04-16 11:23 | Emergency (ER) | payer MEDICARE, MEDICAID, SELFPAY ==
--- NOTE | ~2021-04-16 | US_ITS ---
EXAMINATION: US SCROTUM CLINICAL INFORMATION: Right-sided pain. COMPARISON: None TECHNIQUE: A sonogram of the scrotum was performed assessing davis-scale appearance and color Doppler flow. Spectral Doppler analysis of the arterial and venous flow were performed in the testes bilaterally. FINDINGS: RIGHT: Right testicle measures 3.7 x 2.4 x 2.1 cm, volume 9.6 mL. No focal testicular parenchymal lesions are visualized. Spectral Doppler analysis of the arterial and venous flow is normal in the right testis. Right epididymal head is normal in size. No right hydrocele or varicocele is seen. Right epididymal Doppler flow is normal. LEFT: Left testicle measures 3.7 x 2.1 x 2.5 cm, volume 10.5 mL. No focal testicular parenchymal lesions are visualized. Spectral Doppler analysis of the arterial and venous flow is normal in the left testis. Left epididymal head is normal in size. No left hydrocele or varicocele is seen. Left epididymal Doppler flow is normal. US/US scrotum IMPRESSION: Normal scrotal ultrasound.
--- NOTE | ~2021-04-16 | CT_ITS ---
EXAMINATION: CT ABDOMEN AND PELVIS WITH CONTRAST CLINICAL INFORMATION: Left lower quadrant and left CVA tenderness COMPARISON: Previous CT of the abdomen and pelvis most recent August 2020 TECHNIQUE: Multidetector volumetric images were obtained from the superior aspect of the liver through the pubic symphysis following administration 85 mL of Omnipaque 350 intravenous contrast. Sagittal and coronal reformatted images were obtained on the technologist's workstation. Oral contrast: Yes This CT examination was performed using dose optimization techniques as appropriate, variously including the following: *Automated exposure control *Adjustment of mA and/or kV according to patient size (this includes techniques or standardized protocols for targeted exams where dose is matched to indication/reason for exam; i.e. extremities or head) *Use of iterative reconstruction technique DLP: 630 mGy-cm FINDINGS: LUNG BASES: The visualized lung bases are unremarkable. LIVER, GALLBLADDER, AND BILIARY TREE: The liver is normal in size, shape, and attenuation. No focal hepatic lesion or biliary ductal dilatation is present. The gallbladder is unremarkable with no evidence of radiopaque gallstones, gallbladder wall thickening, or obvious pericholecystic inflammatory changes. PANCREAS: Unremarkable. SPLEEN: Unremarkable. ADRENAL GLANDS: Unremarkable. KIDNEYS AND URETERS: The kidneys are normal in size, shape, and attenuation. No hydronephrosis, hydroureter, or calculi seen. No perinephric stranding. BLADDER: Not optimally distended. There may be a TURP defect. GASTROINTESTINAL TRACT: The small and large bowel are unremarkable. The appendix is unremarkable. ABDOMINAL WALL: There is a small umbilical hernia containing fat. A loop of small bowel extends to the neck of the hernia but does not enter the sac. There is no evidence of obstruction. Small and large bowel is otherwise unremarkable. The appendix is unremarkable. The stomach is not optimally distended. LYMPH NODES: Normal. VASCULAR: Unremarkable. PELVIC VISCERA: Question of a TURP defect. There is a small 5 x 10 mm cystic area in the posterior prostate gland just to the left of midline. This is unchanged from prior exam. The prostate gland does not appear enlarged. OSSEOUS STRUCTURES: Unremarkable. CT/CT abdomen pelvis w con IMPRESSION: Small umbilical hernia containing fat with small bowel extending to the neck of the hernia but not extending into the sac. Question post TURP defect. 5 x 10 mm cystic area in the prostate gland similar to previous exams.
--- NOTE | ~2021-04-16 | US_ITS ---
EXAMINATION: US SCROTUM CLINICAL INFORMATION: Right-sided pain. COMPARISON: None TECHNIQUE: A sonogram of the scrotum was performed assessing davis-scale appearance and color Doppler flow. Spectral Doppler analysis of the arterial and venous flow were performed in the testes bilaterally. FINDINGS: RIGHT: Right testicle measures 3.7 x 2.4 x 2.1 cm, volume 9.6 mL. No focal testicular parenchymal lesions are visualized. Spectral Doppler analysis of the arterial and venous flow is normal in the right testis. Right epididymal head is normal in size. No right hydrocele or varicocele is seen. Right epididymal Doppler flow is normal. LEFT: Left testicle measures 3.7 x 2.1 x 2.5 cm, volume 10.5 mL. No focal testicular parenchymal lesions are visualized. Spectral Doppler analysis of the arterial and venous flow is normal in the left testis. Left epididymal head is normal in size. No left hydrocele or varicocele is seen. Left epididymal Doppler flow is normal. US/US scrotum doppler IMPRESSION: Normal scrotal ultrasound.
[2021-04-16 12:32] VITALS: BP 136/81; PULSE 94; RESP 16; TEMP 36.9; O2SAT 98; BMI 35.5
--- NOTE | 2021-04-16 14:36 | ED.ABDPAIN ---
HPI - Abdominal Pain General Chief Complaint: Abdominal Pain Stated Complaint: back pain Time Seen by Provider: 04/16/21 13:58 Source: patient Mode of arrival: ambulatory Limitations: no limitations History of Present Illness HPI narrative: 61-year-old male presents for 3 months of left flank pain that wraps around to his left lower quadrant that has become much worse the last 2 days. Patient reports increased urinary frequency as well. Patient has had chills. Patient has a burning sensation when he urinates. The flank pain and abdominal pain is worse when he is laying flat. It is a constant achy pain 5/10. Patient also has right testicular pain. Patient is not sexually active, his 9 months ago. Patient can eat and drink, although he is nauseous. No vomiting, no diarrhea, no hematuria or penile discharge. MD elicited complaint: abdominal pain and flank pain Pertinent past history: kidney stones Onset (ago): day(s) (2) Pain Consistency: constant Location: LLQ and L flank Severity: moderate Pain scale (0-10): 5 Quality: aching Exacerbating factors: other (lying flat) Relieving factors: nothing Associated symptoms: nausea, chills and dysuria Related Data Home Medications Medication Instructions Recorded Confirmed buprenorphine 8 mg-naloxone 2 mg 1 strip SUBLINGUAL BID 05/14/20 02/08/21 sublingual film (Suboxone) ibuprofen 600 mg tablet 1 tab PO TID 05/14/20 05/14/20 paroxetine HCl 20 mg tablet 1 tab PO QAM 05/14/20 05/14/20 duloxetine 60 mg capsule,delayed 1 cap PO DAILY 02/08/21 02/08/21 release gabapentin 300 mg capsule 900 mg PO BID 02/08/21 02/08/21 Previous Rx's Medication Instructions Recorded pioglitazone 45 mg tablet 45 mg PO DAILY 90 Days #90 tab 05/07/20 omeprazole 20 mg capsule,delayed 20 mg PO DAILY 90 Days #90 cap 05/09/20 release cyclobenzaprine 10 mg tablet 10 mg PO BEDTIME PRN #20 tab 05/14/20 lidocaine 4 % topical patch 1 patch TOPICAL Q24H PRN #10 ea 05/14/20 atorvastatin 40 mg tablet 40 mg PO DAILY #90 tab 07/02/20 docusate sodium 100 mg capsule 100 mg PO DAILY #14 cap 11/15/20 (Colace) polyethylene glycol 3350 17 17 g PO DAILY PRN #119 g 11/15/20 gram/dose oral powder (Miralax) bisacodyl 5 mg tablet,delayed 10 mg PO BEDTIME 2 Days #4 tab 12/05/20 release (Dulcolax (bisacodyl)) dicyclomine 10 mg capsule 10 mg PO TID 30 Days #90 cap 12/05/20 peg 3350-electrolytes 236 240 ml PO Q10M 1 Days #4000 ml 12/05/20 gram-22.74 gram-6.74 gram-5.86 gram solution (Golytely) sennosides 8.6 mg capsule (senna) 17.2 mg PO BEDTIME 30 Days #60 cap 12/05/20 bisacodyl 5 mg tablet,delayed 10 mg PO ONCE 1 Days #2 tab 12/17/20 release (Dulcolax (bisacodyl)) polyethylene glycol 3350 17 238 g PO ONCE 1 Days #238 g 12/17/20 gram/dose oral powder (Miralax) trazodone 50 mg tablet 50 mg PO BEDTIME #30 tab 12/18/20 cephalexin 500 mg capsule 500 mg PO QID 10 Days #40 cap 04/16/21 Allergies Allergy/AdvReac Type Severity Reaction Status Date / Time No Known Allergies Allergy Verified 02/13/21 07:34 [No Known Allergies*] Review of Systems Constitutional: Reports chills, Reports fatigue, Denies fever(s), Denies headache(s) and Denies malaise Denies otalgia, Denies headache(s), Denies neck pain and Denies sore throat Cardiovascular: Denies chest pain, Denies leg edema and Denies dyspnea Respiratory: Denies chest congestion, Denies cough and Denies dyspnea Gastrointestinal: Reports abdominal pain, Denies hematochezia, Denies constipation, Denies diarrhea, Reports nausea and Denies vomiting Genitourinary: Denies hematuria, Denies difficulty urinating, Reports dysuria, Reports flank pain, Denies penile discharge, Reports testicular pain and Reports urinary urgency Musculoskeletal: Reports back pain and Denies neck pain Skin/Breast: Denies erythema, Denies rash and Denies wounds Denies headache(s) Comments: States has within the last year Endocrine: Reports fatigue Physical Exam Vital Signs: Vital Signs: Last Vital Signs Temp 98.3 F 04/16/21 16:39 Pulse 70 04/16/21 16:39 Resp 17 04/16/21 16:39 BP 100/54 L 04/16/21 16:39 Pulse Ox 99 04/16/21 16:39 Body Mass Index 35.5 Const: General: cooperative, no acute distress, well developed, alert and awake Nutritional Appearance: well nourished Orientation/consciousness: patient oriented x3 Limitations: no limitations HENMT: Head: Yes normal to inspection, Yes normocephalic and Yes atraumatic Ears: hearing grossly normal bilaterally, external ears normal, TM's normal bilaterally and EAC's normal General nose exam: Normal external nose present Face and sinus: Yes normal facial exam and Yes sinuses nontender Mouth: Normal oral and palatal mucosa present Throat: Yes posterior oropharynx normal Eyes: Conjunctivae: conjunctivae normal Pupils: Equal, round and reactive pupils present EOM: EOMs intact bilaterally Neck: Neck: Yes full ROM, Yes no lymphadenopathy and Yes supple Resp: Effort & Inspection: normal respiratory effort and able to speak in complete sentences Auscultation: clear to auscultation bilaterally, no crackles, no rales, no rhonchi and no wheezes Cardio: Rate: regular rate Rhythm: regular rhythm Heart sounds: S1 normal heart sound present and S2 normal heart sound present GI: Inspection: Yes normal to inspection Palpation (GI): Soft to palpation, Tenderness to palpation present (GI) in the LLQ, Guarding due to palpation present (GI) in the LLQ and not rigid Percussion: Yes normal to percussion Auscultation: normal bowel sounds : Penis: normal penis, uncircumcised, no nodules, no papules, no pustules and no vesicles Meatus: meatus normal and No Blood at meatus present Scrotum: scrotum normal, not edematous, not erythematous, testes descended bilaterally, no hydroceles and no inguinal hernias Testes: testicular lie normal, no testicular mass, no testicular swelling and testicular tenderness on the right Skin: General skin exam: no rashes or lesions noted Neuro: General: patient oriented x3, tone normal and moves all extremities Cranial nerves: Yes Equal, round and reactive pupils present Extrem: General: Yes normal to inspection and Yes full ROM Psych: Appearance: grossly normal Affect: normal affect Attitude: cooperative Thought process: Normal thought process present Course Course Course Narrative: 61-year-old male presents for 2 days of worsening left flank pain radiating to his left lower quadrant, and right testicle pain. Patient has had dysuria, urinary frequency, and chills. exam, patient has stable vitals, is afebrile. Patient is tender and guarding his left lower quadrant, has left CVA tenderness. On genital exam, patient is tender in the posterior of his right testicle. Will get urine, CT abdomen pelvis, ultrasound testicles, get labs, gave fluids, Toradol, Zofran. CT Abd/pelvis shows: Small umbilical hernia containing fat with small bowel extending to the neck of the hernia but not extending into the sac. Question post TURP defect. 5 x 10 mm cystic area in the prostate gland similar to previous exams. Ultrasound of testicles is normal. Urine shows glucosuria and +1 leukocyte esterase. Prescribed a 10 day course of Keflex. Gave return precautions of fever, nausea vomiting, worsening back pain. Advised patient to follow-up with primary care for findings of system prostate and small umbilical hernia. MDM - Abdominal Pain Lab Data Result diagrams: 04/16/21 14:45 04/16/21 14:45 Labs: Lab Results 04/16/21 04/16/21 04/16/21 Range/Units 14:45 14:45 14:45 WBC 10.7 (4.8-10.8) X10*3/uL RBC 4.59 L (4.60-5.80) X10*6/uL Hgb 12.9 L (14.0-18.0) g/dl Hct 38.7 L (42-52) % MCV 84.3 (80-98) fL MCH 28.1 (27.0-33.0) pg MCHC 33.3 (31.0-36.0) g/dl RDW 15.2 (11.0-16.0) % Plt Count 185 (160-400) X10*3/uL MPV 11.0 (9.4-12.4) fL Immature Gran % (Auto) 0.3 (0.0-0.4) % Neut % (Auto) 67.6 (45-73) % Lymph % (Auto) 25.7 (20-40) % Hamb[place] % (Auto) 4.6 (2-11) % Eos % (Auto) 1.4 (0-4) % Baso % (Auto) 0.4 (0-2) % Lymph # (Auto) 2.8 (1.2-4.9) X10*3/uL Hamb[place] # (Auto) 0.5 (0.1-1.2) X10*3/uL Eos # (Auto) 0.2 (0.0-0.4) X10*3/uL Baso # (Auto) 0.0 (0.0-0.2) X10*3/uL Abs Immat Gran (auto) 0.03 (0.00-0.03) X10*3/uL Absolute Neuts (auto) 7.3 (2.0-8.3) X10*3/uL Absolute Nucleated RBC 0.000 (0.0-0.012) X10*3/uL Nucleated RBC % (auto) 0.0 (0.0-0.2) /100WBC Sodium 140 (135-145) mmol/L Potassium 4.0 (3.3-5.1) mmol/L Chloride 106 (96-108) mmol/L Carbon Dioxide 25 (22-29) mmol/L Anion Gap 13 (12-20) BUN 16 (9-16) mg/dL Creatinine 1.07 (0.5-1.4) mg/dL Estim Creat Clear Calc 79.1 Estimated GFR > 60 Random Glucose 174 H D (60-115) mg/dL Calcium 9.6 (8.4-10.2) mg/dL Total Bilirubin 0.4 (0.0-1.0) mg/dL AST 14 (5-37) U/L ALT 14 (0-40) U/L Alkaline Phosphatase 71 D (39-117) U/L Total Protein 7.2 (6.5-8.0) g/dL Albumin 4.4 (3.5-5.0) g/dL Urine Color Urine Appearance Urine pH (5.0-8.0) Ur Specific Gaston (1.005-1.025) Urine Protein (NEG-TRACE) MG/DL Urine Glucose (UA) (NEG) MG/DL Urine Ketones (NEG) MG/DL Urine Blood (NEG) Urine Nitrite (NEG) Ur Leukocyte Esterase (NEG) Urine RBC (0) /HPF Urine WBC (0-4) /HPF Ur Squamous Epith Cells /LPF Urine Bacteria /LPF COVID-19 (DEAN) Negative (Negative) COVID-19 Clin Com See Note 04/16/21 Range/Units 15:12 WBC (4.8-10.8) X10*3/uL RBC (4.60-5.80) X10*6/uL Hgb (14.0-18.0) g/dl Hct (42-52) % MCV (80-98) fL MCH (27.0-33.0) pg MCHC (31.0-36.0) g/dl RDW (11.0-16.0) % Plt Count (160-400) X10*3/uL MPV (9.4-12.4) fL Immature Gran % (Auto) (0.0-0.4) % Neut % (Auto) (45-73) % Lymph % (Auto) (20-40) % Hamb[place] % (Auto) (2-11) % Eos % (Auto) (0-4) % Baso % (Auto) (0-2) % Lymph # (Auto) (1.2-4.9) X10*3/uL Hamb[place] # (Auto) (0.1-1.2) X10*3/uL Eos # (Auto) (0.0-0.4) X10*3/uL Baso # (Auto) (0.0-0.2) X10*3/uL Abs Immat Gran (auto) (0.00-0.03) X10*3/uL Absolute Neuts (auto) (2.0-8.3) X10*3/uL Absolute Nucleated RBC (0.0-0.012) X10*3/uL Nucleated RBC % (auto) (0.0-0.2) /100WBC Sodium (135-145) mmol/L Potassium (3.3-5.1) mmol/L Chloride (96-108) mmol/L Carbon Dioxide (22-29) mmol/L Anion Gap (12-20) BUN (9-16) mg/dL Creatinine (0.5-1.4) mg/dL Estim Creat Clear Calc Estimated GFR Random Glucose (60-115) mg/dL Calcium (8.4-10.2) mg/dL Total Bilirubin (0.0-1.0) mg/dL AST (5-37) U/L ALT (0-40) U/L Alkaline Phosphatase (39-117) U/L Total Protein (6.5-8.0) g/dL Albumin (3.5-5.0) g/dL Urine Color YELLOW Urine Appearance CLEAR Urine pH 6.0 (5.0-8.0) Ur Specific [place] 1.025 (1.005-1.025) Urine Protein TRACE (NEG-TRACE) MG/DL Urine Glucose (UA) 100 H (NEG) MG/DL Urine Ketones NEG (NEG) MG/DL Urine Blood NEG (NEG) Urine Nitrite NEG (NEG) Ur Leukocyte Esterase 1+ H (NEG) Urine RBC 0 (0) /HPF Urine WBC 0-2 (0-4) /HPF Ur Squamous Epith Cells NONE /LPF Urine Bacteria TRACE /LPF COVID-19 (DEAN) (Negative) COVID-19 Clin Com Discharge Plan Discharge Clinical Impression: Acute UTI Patient Disposition: Home, Self-Care Instructions: Urinary Tract Infection in Men (ED) Additional Instructions: please call your primary care provider for follow-up appointment. CT scan showed a small umbilical hernia and assist in your prostate gland. I do not think this is related to your urinary tract infection today. I want you to take your antibiotics as prescribed for 10 days. If you have fevers, vomiting, or worsening back pain please return llame a camarillo proveedor de atenci?n primaria para vadim amber de seguimiento. La tomograf?a computarizada mostr? vadim aureliano?a hernia umbilical y ayud? en la gl?ndula prost?musa. No creo que esto est? relacionado con cam[place] infecci?n del tracto urinario actual. Quiero que tome michaela antibi?ticos seg?n lo recetado bill 10 d?as. Si tiene fiebre, v?mitos o empeoramiento del dolor de espalda, regrese Prescriptions: New cephalexin 500 mg capsule 500 mg PO QID 10 Days Qty: 40 RF: 0 No Action pioglitazone 45 mg tablet 45 mg PO DAILY 90 Days Qty: 90 RF: 3 omeprazole 20 mg capsule,delayed release(DR/EC) 20 mg PO DAILY 90 Days Qty: 90 RF: 3 atorvastatin 40 mg tablet 40 mg PO DAILY Qty: 90 RF: 3 polyethylene glycol 3350 [Miralax] 17 gram/dose powder 238 g PO ONCE 1 Days Qty: 238 RF: 0 bisacodyl [Dulcolax (bisacodyl)] 5 mg tablet,delayed release (DR/EC) 10 mg PO ONCE 1 Days Qty: 2 RF: 0 trazodone 50 mg tablet 50 mg PO BEDTIME Qty: 30 RF: 6 gabapentin 300 mg capsule 900 mg PO BID RF: 0 duloxetine 60 mg capsule,delayed release(DR/EC) 1 cap PO DAILY RF: 0 paroxetine HCl 20 mg tablet 1 tab PO QAM RF: 0 ibuprofen 600 mg tablet 1 tab PO TID RF: 0 buprenorphine-naloxone [Suboxone] 8-2 mg film 1 strip sublingual BID RF: 0 lidocaine 4 % adhesive patch,medicated 1 patch topical Q24H PRN (Reason: pain) Qty: 10 RF: 1 cyclobenzaprine 10 mg tablet 10 mg PO BEDTIME PRN (Reason: muscle spasm) Qty: 20 RF: 0 polyethylene glycol 3350 [Miralax] 17 gram/dose powder 17 g PO DAILY PRN (Reason: laxative effect) Qty: 119 RF: 1 docusate sodium [Colace] 100 mg capsule 100 mg PO DAILY Qty: 14 RF: 0 peg 3350-electrolytes [Golytely] 236-22.74-6.74 -5.86 gram recon soln 240 ml PO Q10M 1 Days Qty: 4000 RF: 0 bisacodyl [Dulcolax (bisacodyl)] 5 mg tablet,delayed release (DR/EC) 10 mg PO BEDTIME 2 Days Qty: 4 RF: 0 senna 8.6 mg capsule 17.2 mg PO BEDTIME 30 Days Qty: 60 RF: 1 dicyclomine 10 mg capsule 10 mg PO TID 30 Days Qty: 90 RF: 3 PMFSH Past Medical History Medical History Anxiety Depression Diabetes mellitus Elevated cholesterol GERD (gastroesophageal reflux disease) Neuropathy Opioid dependence Surgical History Hx of colonoscopy Hx of knee surgery Family History Family History Mother No problems noted. Father No problems noted. Sister No problems noted. Social History Social History Household Members: None Alcohol intake: former Year quit: 2018 Patient Tobacco Use Status: Current everyday Tobacco user Cigarettes Per Day: 10 Advance Directives: Yes Advance Directives Information Provided: Yes Advance Directives on File: No Current occupational status: disabled
[2021-04-16 15:01] LABS: MANUAL DIFF FLAG NO
[2021-04-16] MEDS: 0.9 % Sodium Chloride 1,000 ML 999 ML IV (15:06)
[2021-04-16 15:07] LABS: Basophils Percent Auto 0.4 % (0-2); Eosinophils Absolute Auto 0.2 X10*3/uL (0.0-0.4); Eosinophils Percent Auto 1.4 % (0-4); Hematocrit 38.7 % (42-52); Hemoglobin 12.9 g/dl (14.0-18.0); Imm Gran Abs Auto 0.03 X10*3/uL (0.00-0.03); Imm Gran Pct Auto 0.3 % (0.0-0.4); Lymphocytes Absolute Auto 2.8 X10*3/uL (1.2-4.9); Lymphocytes Percent Auto 25.7 % (20-40); Mean Corpuscular HGB Conc 33.3 g/dl (31.0-36.0); Mean Corpuscular Hemoglobin 28.1 pg (27.0-33.0); Mean Corpuscular Volume 84.3 fL (80-98); Monocytes Absolute Auto 0.5 X10*3/uL (0.1-1.2); Monocytes Percent Auto 4.6 % (2-11); Neutrophils Absolute Auto 7.3 X10*3/uL (2.0-8.3); Neutrophils Percent Auto 67.6 % (45-73); Platelet Count 185 X10*3/uL (160-400); Red Blood Count 4.59 X10*6/uL (4.60-5.80); Red Cell Distribution Width 15.2 % (11.0-16.0); White Blood Count 10.7 X10*3/uL (4.8-10.8)
[2021-04-16] MEDS: Ketorolac Tromethamine 15 MG/ML VIAL IVPUSH (15:09)
[2021-04-16 15:22] LABS: Alanine Aminotransferase 14 U/L (0-40); Albumin Level 4.4 g/dL (3.5-5.0); Alkaline Phosphatase 71 U/L (39-117); Anion Gap 13 (12-20); Aspartate Amino Transferase 14 U/L (5-37); Bilirubin Total 0.4 mg/dL (0.0-1.0); Blood Urea Nitrogen 16 mg/dL (9-16); Calcium 9.6 mg/dL (8.4-10.2); Carbon Dioxide 25 mmol/L (22-29); Chloride 106 mmol/L (96-108); Creatinine Clr Calc Pharmacy 79.1; Estimated Glomerular Filt Rate > 60; Glucose Random 174 mg/dL (60-115); Sodium 140 mmol/L (135-145); Total Protein 7.2 g/dL (6.5-8.0)
[2021-04-16 15:28] LABS: COVID-19 Test Negative (Negative)
[2021-04-16 15:29] LABS: Appearance Urine CLEAR; Color Urine YELLOW; Glucose Urine UA 100 MG/DL (NEG); Leukocyte Esterase Urine 1+ (NEG); Nitrite Urine NEG (NEG); Specific Gravity - Urine 1.025 (1.005-1.025); UACC Culture Trigger YES; Urine Blood NEG (NEG); Urine Ketones NEG (NEG); Urine Protein TRACE MG/DL (NEG-TRACE)
[2021-04-16] MEDS: ondansetron HCL 4 MG/2 ML VIAL IVPUSH (15:32)
--- NOTE | 2021-04-16 15:39 | PC.NURSE ---
Pt medicated for abd pain and nausea. He is in NAD resting in bed awaiting Ultrasound at this time.
[2021-04-16 15:49] LABS: Bacteria Urine TRACE /LPF; RBC Urine 0 /HPF (0); WBC Urine 0-2 /HPF (0-4)
[2021-04-16] MEDS: iohexoL 350 MG/ML 100 ML INFUS..BTL IV (16:09)
[2021-04-16 16:39] VITALS: BP 100/54; PULSE 70; RESP 17; TEMP 36.8; O2SAT 99
== END 2021-04-16 17:32 | disposition home or self-care (01) ==
PROVIDERS: Physician Assistant; Emergency Provider Internal Medicine
DX: N39.0 Urinary tract infection, site not specified (principal); M54.5 Low back pain; R10.32 Left lower quadrant pain; R60.0 Localized edema; F17.210 Nicotine dependence, cigarettes, uncomplicated; Z20.822 Contact with and (suspected) exposure to COVID-19; Z71.6 Tobacco abuse counseling; Z79.899 Other long term (current) drug therapy
CPT/HCPCS: 36415; 74177; 76870; 80053; 81001; 85025; 87086; 87635; 93975; 96361; 96374; 96375; 99283; 99284; J1885; J2405; Q9967

== ENCOUNTER 2021-05-27 14:15 | Emergency (ER) | payer MEDICARE, MEDICAID, SELFPAY ==
--- NOTE | ~2021-05-27 | XR_ITS ---
EXAMINATION: XR CHEST CLINICAL INFORMATION: Dyspnea COMPARISON: None TECHNIQUE: Frontal view of the chest was obtained. FINDINGS: The cardiac silhouette is slightly enlarged. Hilar and mediastinal contours are unremarkable. There is right perihilar airspace disease probably representing pneumonia. This is greatest at the right lung base. The left lung is clear. There is no pleural effusion or pneumothorax. There are degenerative changes of the spine. XR/XR chest 1V IMPRESSION: Slightly enlarged cardiac silhouette. Right perihilar airspace disease probably representing pneumonia.
--- NOTE | 2021-05-27 14:18 | ED.FEVER ---
HPI - Fever General Chief Complaint: Upper Respiratory Symptoms Stated Complaint: chills, fever, sob Time Seen by Provider: 05/27/21 14:18 Source: patient and EMS Mode of arrival: EMS Limitations: no limitations and language barrier History of Present Illness HPI Narrative: 61 yo male pmhx significnt for HTN, DM and GERD brought in by ambulance with concerns of bodyaches,weakness, fatigue and CP since last night. He states both these things started suddenly last night and have been progressively worsening. He describes the CP as substernal, intermittent, tightness, nonradiating. Denies nausea, vomiting, SOB, diarrhea, abdominal pain, weakness, fevers, chills. He states he received both of his COVID vaccines, last one was about 2 months ago. MD elicited complaint: malaise and weakness Pertinent past history: diabetes Onset (ago): day(s) (1) Exacerbating factors: nothing Relieving factors: nothing Associated symptoms: denies other symptoms Treatments prior to arrival fever: none Related Data Home Medications Medication Instructions Recorded Confirmed buprenorphine 8 mg-naloxone 2 mg 1 strip SUBLINGUAL BID 05/14/20 02/08/21 sublingual film (Suboxone) ibuprofen 600 mg tablet 1 tab PO TID 05/14/20 05/14/20 paroxetine HCl 20 mg tablet 1 tab PO QAM 05/14/20 05/14/20 duloxetine 60 mg capsule,delayed 1 cap PO DAILY 02/08/21 02/08/21 release gabapentin 300 mg capsule 900 mg PO BID 02/08/21 02/08/21 Previous Rx's Medication Instructions Recorded omeprazole 20 mg capsule,delayed 20 mg PO DAILY 90 Days #90 cap 05/09/20 release cyclobenzaprine 10 mg tablet 10 mg PO BEDTIME PRN #20 tab 05/14/20 lidocaine 4 % topical patch 1 patch TOPICAL Q24H PRN #10 ea 05/14/20 atorvastatin 40 mg tablet 40 mg PO DAILY #90 tab 07/02/20 docusate sodium 100 mg capsule 100 mg PO DAILY #14 cap 11/15/20 (Colace) polyethylene glycol 3350 17 17 g PO DAILY PRN #119 g 11/15/20 gram/dose oral powder (Miralax) bisacodyl 5 mg tablet,delayed 10 mg PO BEDTIME 2 Days #4 tab 12/05/20 release (Dulcolax (bisacodyl)) dicyclomine 10 mg capsule 10 mg PO TID 30 Days #90 cap 12/05/20 peg 3350-electrolytes 236 240 ml PO Q10M 1 Days #4000 ml 12/05/20 gram-22.74 gram-6.74 gram-5.86 gram solution (Golytely) sennosides 8.6 mg capsule (senna) 17.2 mg PO BEDTIME 30 Days #60 cap 12/05/20 bisacodyl 5 mg tablet,delayed 10 mg PO ONCE 1 Days #2 tab 12/17/20 release (Dulcolax (bisacodyl)) polyethylene glycol 3350 17 238 g PO ONCE 1 Days #238 g 12/17/20 gram/dose oral powder (Miralax) trazodone 50 mg tablet 50 mg PO BEDTIME #30 tab 12/18/20 cephalexin 500 mg capsule 500 mg PO QID 10 Days #40 cap 04/16/21 pioglitazone 45 mg tablet 45 mg PO DAILY 90 Days #90 tab 05/14/21 amoxicillin 875 mg-potassium 1 tab PO BID #14 tab 05/27/21 clavulanate 125 mg tablet (Augmentin) doxycycline hyclate 100 mg capsule 100 mg PO BID 7 Days #14 cap 05/27/21 Allergies Allergy/AdvReac Type Severity Reaction Status Date / Time No Known Allergies Allergy Verified 02/13/21 07:34 [No Known Allergies*] Review of Systems Review of Systems: Constitutional : No Fever, No Chills, + malise ENT/Mouth : positive oral swelling, No Hoarseness, No Swallowing Difficulty Eyes: No Eye Pain, No Swelling, No Redness Cardiovascular : + Chest Pain, No SOB Respiratory : No Cough, No Sputum, No Wheezing, No Smoke Exposure, No Dyspnea Gastrointestinal : No Nausea, No Vomiting, No Diarrhea, No abdominal Pain Genitourinary : No Dysuria, No Urinary Frequency, No Hematuria Musculoskeletal : No joint pain, No Myalgias, No Joint Swelling Skin : No Skin Lesions, positive rash Neuro : + Weakness, No Numbness, No Headache All other systems reviewed and are negative [facility] Past Medical History Attestation statement: The following information was validated with the patient. Source: old records reviewed and nursing notes reviewed Medical History Anxiety Depression Diabetes mellitus Elevated cholesterol GERD (gastroesophageal reflux disease) Neuropathy Opioid dependence Surgical History Hx of colonoscopy Hx of knee surgery Family History Family History Mother No problems noted. Father No problems noted. Sister No problems noted. Social History Social History Household Members: None Alcohol intake: never Patient Tobacco Use Status: Current everyday Tobacco user Cigarettes Per Day: 10 Use of substances other than those prescribed or required for medical reasons: No Advance Directives: No Advance Directives Information Provided: Yes Current occupational status: disabled Physical Exam Vital Signs: Vital Signs: Last Vital Signs Temp 98.4 F 05/27/21 14:20 Pulse 80 05/27/21 14:20 Resp 18 05/27/21 14:20 BP 128/66 05/27/21 14:20 Pulse Ox 99 05/27/21 14:20 Body Mass Index 32.3 Appearance: Alert. Oriented X3. No acute distress. Eyes: Pupils equal, round and reactive to light. ENT: Pharynx normal. Neck: Normal inspection. Neck supple. CVS: Normal heart rate and rhythm. Pulses normal. Respiratory: No respiratory distress. Breath sounds normal. Abdomen: Soft and nontender. Skin: Skin warm and dry. Normal skin color. Normal skin turgor. Extremities: No lower extremity edema. No calf ttp Neuro: Oriented X 3. No motor deficit. No sensory deficit. Course Course Course Narrative: WBC count but afebrile, no hypoxia, no distress - can be managed with outpatient antibiotics MDM - Fever MDM Narrative Medical decision making narrative: 61-year-old male past medical history significant for hypertension, GERD, diabetes presents the emergency department with body aches, fatigue, weakness and chest pain since last night., shortness of breath. Last COVID shot was 2 months ago. He is fully vaccinated. Denies sick contacts Plan at this time is to obtain a CBC, BMP, magnesium, trop, UA, CK, EKG, Flu/COVID/RSV Lab Data Result diagrams: 05/27/21 15:40 05/27/21 15:40 Labs: Lab Results 10/25/21 10/25/21 10/25/21 Range/Units 15:35 15:40 15:40 WBC 13.2 H (4.8-10.8) X10*3/uL RBC 4.39 L (4.60-5.80) X10*6/uL Hgb 12.2 L (14.0-18.0) g/dl Hct 37.0 L (42-52) % MCV 84.3 (80-98) fL MCH 27.8 (27.0-33.0) pg MCHC 33.0 (31.0-36.0) g/dl RDW 14.7 (11.0-16.0) % Plt Count 255 D (160-400) X10*3/uL MPV 10.7 (9.4-12.4) fL Immature Gran % (Auto) 0.5 H (0.0-0.4) % Neut % (Auto) 80.9 H (45-73) % Lymph % (Auto) 10.2 L (20-40) % [place] % (Auto) 6.6 (2-11) % Eos % (Auto) 1.6 (0-4) % Baso % (Auto) 0.2 (0-2) % Lymph # (Auto) 1.3 (1.2-4.9) X10*3/uL [place] # (Auto) 0.9 (0.1-1.2) X10*3/uL Eos # (Auto) 0.2 (0.0-0.4) X10*3/uL Baso # (Auto) 0.0 (0.0-0.2) X10*3/uL Abs Immat Gran (auto) 0.06 H (0.00-0.03) X10*3/uL Absolute Neuts (auto) 10.7 H (2.0-8.3) X10*3/uL Absolute Nucleated RBC 0.000 (0.0-0.012) X10*3/uL Nucleated RBC % (auto) 0.0 (0.0-0.2) /100WBC Sodium 142 (135-145) mmol/L Potassium 4.2 (3.3-5.1) mmol/L Chloride 103 (96-108) mmol/L Carbon Dioxide 30 H (22-29) mmol/L Anion Gap 13 (12-20) BUN 19 H (9-16) mg/dL Creatinine 1.00 (0.5-1.4) mg/dL Estim Creat Clear Calc 80.7 Estimated GFR > 60 Random Glucose 113 D (60-115) mg/dL Calcium 10.1 (8.4-10.2) mg/dL Magnesium 2.0 (1.6-2.6) mg/dL Total Creatine Kinase 144 (38-174) U/L Troponin I High Sens (<3.5-35.0) ng/L Urine Color YELLOW Urine Appearance CLEAR Urine pH 5.5 (5.0-8.0) Ur Specific [place] >= 1.030 H (1.005-1.025) Urine Protein 1+ H (NEG-TRACE) MG/DL Urine Glucose (UA) 250 H (NEG) MG/DL Urine Ketones 5 (NEG) MG/DL Urine Blood NEG (NEG) Urine Nitrite NEG (NEG) Ur Leukocyte Esterase NEG (NEG) Urine RBC 0 (0) /HPF Urine WBC 0 (0-4) /HPF Ur Squamous Epith Cells 1+ /LPF Calcium Oxalate Crystal 1+ /LPF Urine Bacteria 1+ /LPF Urine Mucus 1+ /LPF Coronavirus (PCR) (Negative) Influenza Type A (PCR) (Negative) Influenza Type B (PCR) (Negative) RSV RNA Qual (PCR) (Negative) 05/27/21 05/27/21 Range/Units 15:40 15:42 WBC (4.8-10.8) X10*3/uL RBC (4.60-5.80) X10*6/uL Hgb (14.0-18.0) g/dl Hct (42-52) % MCV (80-98) fL MCH (27.0-33.0) pg MCHC (31.0-36.0) g/dl RDW (11.0-16.0) % Plt Count (160-400) X10*3/uL MPV (9.4-12.4) fL Immature Gran % (Auto) (0.0-0.4) % Neut % (Auto) (45-73) % Lymph % (Auto) (20-40) % [place] % (Auto) (2-11) % Eos % (Auto) (0-4) % Baso % (Auto) (0-2) % Lymph # (Auto) (1.2-4.9) X10*3/uL [place] # (Auto) (0.1-1.2) X10*3/uL Eos # (Auto) (0.0-0.4) X10*3/uL Baso # (Auto) (0.0-0.2) X10*3/uL Abs Immat Gran (auto) (0.00-0.03) X10*3/uL Absolute Neuts (auto) (2.0-8.3) X10*3/uL Absolute Nucleated RBC (0.0-0.012) X10*3/uL Nucleated RBC % (auto) (0.0-0.2) /100WBC Sodium (135-145) mmol/L Potassium (3.3-5.1) mmol/L Chloride (96-108) mmol/L Carbon Dioxide (22-29) mmol/L Anion Gap (12-20) BUN (9-16) mg/dL Creatinine (0.5-1.4) mg/dL Estim Creat Clear Calc Estimated GFR Random Glucose (60-115) mg/dL Calcium (8.4-10.2) mg/dL Magnesium (1.6-2.6) mg/dL Total Creatine Kinase (38-174) U/L Troponin I High Sens < 3.5 (<3.5-35.0) ng/L Urine Color Urine Appearance Urine pH (5.0-8.0) Ur Specific [place] (1.005-1.025) Urine Protein (NEG-TRACE) MG/DL Urine Glucose (UA) (NEG) MG/DL Urine Ketones (NEG) MG/DL Urine Blood (NEG) Urine Nitrite (NEG) Ur Leukocyte Esterase (NEG) Urine RBC (0) /HPF Urine WBC (0-4) /HPF Ur Squamous Epith Cells /LPF Calcium Oxalate Crystal /LPF Urine Bacteria /LPF Urine Mucus /LPF Coronavirus (PCR) NEGATIVE (Negative) Influenza Type A (PCR) NEGATIVE (Negative) Influenza Type B (PCR) NEGATIVE (Negative) RSV RNA Qual (PCR) NEGATIVE (Negative) ECG Data ECG #1: ECG interpretation date: 05/27/21 ECG interpretation time: 15:28 Prior ECG tracings: available for review Ischemic changes: CT segment depression Interpretation: Ventricular rate 67, normal CT interval, normal QRS, normal QT/QTC. EKG shows normal sinus rhythm. No ST elevations, or new T-wave inversions. No acute ischemia. EKG is similar when compared to EKG from 08/22/2020. Discharge Plan Discharge Clinical Impression: Leukocytosis Qualifiers: Leukocytosis type: unspecified Qualified Code(s): D72.829 - Elevated white blood cell count, unspecified Pneumonia Qualifiers: Pneumonia type: due to unspecified organism Laterality: right Lung location: unspecified part of lung Qualified Code(s): J18.9 - Pneumonia, unspecified organism Patient Disposition: Home, Self-Care Instructions: Community Acquired Pneumonia (ED), Pneumonia (ED) Additional Instructions: return to ED for any worsening symptoms or concerns Prescriptions: New doxycycline hyclate 100 mg capsule 100 mg PO BID 7 Days Qty: 14 RF: 0 amoxicillin-pot clavulanate [Augmentin] 875-125 mg tablet 1 tab PO BID Qty: 14 RF: 0 No Action omeprazole 20 mg capsule,delayed release(DR/EC) 20 mg PO DAILY 90 Days Qty: 90 RF: 3 atorvastatin 40 mg tablet 40 mg PO DAILY Qty: 90 RF: 3 polyethylene glycol 3350 [Miralax] 17 gram/dose powder 238 g PO ONCE 1 Days Qty: 238 RF: 0 bisacodyl [Dulcolax (bisacodyl)] 5 mg tablet,delayed release (DR/EC) 10 mg PO ONCE 1 Days Qty: 2 RF: 0 trazodone 50 mg tablet 50 mg PO BEDTIME Qty: 30 RF: 6 pioglitazone 45 mg tablet 45 mg PO DAILY 90 Days Qty: 90 RF: 3 gabapentin 300 mg capsule 900 mg PO BID RF: 0 duloxetine 60 mg capsule,delayed release(DR/EC) 1 cap PO DAILY RF: 0 paroxetine HCl 20 mg tablet 1 tab PO QAM RF: 0 ibuprofen 600 mg tablet 1 tab PO TID RF: 0 buprenorphine-naloxone [Suboxone] 8-2 mg film 1 strip sublingual BID RF: 0 lidocaine 4 % adhesive patch,medicated 1 patch topical Q24H PRN (Reason: pain) Qty: 10 RF: 1 cyclobenzaprine 10 mg tablet 10 mg PO BEDTIME PRN (Reason: muscle spasm) Qty: 20 RF: 0 polyethylene glycol 3350 [Miralax] 17 gram/dose powder 17 g PO DAILY PRN (Reason: laxative effect) Qty: 119 RF: 1 docusate sodium [Colace] 100 mg capsule 100 mg PO DAILY Qty: 14 RF: 0 cephalexin 500 mg capsule 500 mg PO QID 10 Days Qty: 40 RF: 0 peg 3350-electrolytes [Golytely] 236-22.74-6.74 -5.86 gram recon soln 240 ml PO Q10M 1 Days Qty: 4000 RF: 0 bisacodyl [Dulcolax (bisacodyl)] 5 mg tablet,delayed release (DR/EC) 10 mg PO BEDTIME 2 Days Qty: 4 RF: 0 senna 8.6 mg capsule 17.2 mg PO BEDTIME 30 Days Qty: 60 RF: 1 dicyclomine 10 mg capsule 10 mg PO TID 30 Days Qty: 90 RF: 3 Referrals: Physician,Unknown J [Primary Care Provider] - 2 days (if not better) Stand Alone Forms: Work/School Release Print Language: Indonesian
[2021-05-27 14:20] VITALS: BP 128/66; PULSE 80; RESP 18; TEMP 36.9; O2SAT 99; BMI 32.3
--- NOTE | 2021-05-27 14:23 | ECG_ITS ---
Test Reason : CHEST PAIN Blood Pressure : / mmHG Vent. Rate : 067 BPM Atrial Rate : 067 BPM P-R Int : 142 ms QRS Dur : 096 ms QT Int : 404 ms P-R-T Axes : 048 006 022 degrees QTc Int : 426 ms Normal sinus rhythm Normal ECG No significant changes seen Referred By: Kavita Smallwood Electronically Signed By:JAY MCKINNEY MD
[2021-05-27 15:50] LABS: Appearance Urine CLEAR; Color Urine YELLOW; Glucose Urine UA 250 MG/DL (NEG); Leukocyte Esterase Urine NEG (NEG); Nitrite Urine NEG (NEG); PH 5.5 (5.0-8.0); Specific Gravity - Urine >= 1.030 (1.005-1.025); UACC Culture Trigger NO; Urine Blood NEG (NEG); Urine Ketones 5 MG/DL (NEG); Urine Protein 1+ MG/DL (NEG-TRACE)
[2021-05-27 15:52] LABS: MANUAL DIFF FLAG NO
[2021-05-27 15:54] LABS: Basophils Percent Auto 0.2 % (0-2); Eosinophils Absolute Auto 0.2 X10*3/uL (0.0-0.4); Eosinophils Percent Auto 1.6 % (0-4); Hemoglobin 12.2 g/dl (14.0-18.0); Imm Gran Abs Auto 0.06 X10*3/uL (0.00-0.03); Imm Gran Pct Auto 0.5 % (0.0-0.4); Lymphocytes Absolute Auto 1.3 X10*3/uL (1.2-4.9); Lymphocytes Percent Auto 10.2 % (20-40); Mean Corpuscular Hemoglobin 27.8 pg (27.0-33.0); Mean Corpuscular Volume 84.3 fL (80-98); Mean Platelet Volume 10.7 fL (9.4-12.4); Monocytes Absolute Auto 0.9 X10*3/uL (0.1-1.2); Monocytes Percent Auto 6.6 % (2-11); Neutrophils Absolute Auto 10.7 X10*3/uL (2.0-8.3); Neutrophils Percent Auto 80.9 % (45-73); Platelet Count 255 X10*3/uL (160-400); Red Blood Count 4.39 X10*6/uL (4.60-5.80); Red Cell Distribution Width 14.7 % (11.0-16.0); White Blood Count 13.2 X10*3/uL (4.8-10.8)
[2021-05-27 16:04] LABS: Bacteria Urine 1+ /LPF; RBC Urine 0 /HPF (0); Squamous Epithelial Cell Urine 1+ /LPF; WBC Urine 0 /HPF (0-4)
[2021-05-27 16:04] LABS: Anion Gap 13 (12-20); Blood Urea Nitrogen 19 mg/dL (9-16); Calcium 10.1 mg/dL (8.4-10.2); Carbon Dioxide 30 mmol/L (22-29); Chloride 103 mmol/L (96-108); Creatinine Clr Calc Pharmacy 80.7; Estimated Glomerular Filt Rate > 60; Glucose Random 113 mg/dL (60-115); Potassium 4.2 mmol/L (3.3-5.1); Sodium 142 mmol/L (135-145)
[2021-05-27 16:05] LABS: Calcium Oxalate Crystals Urine 1+ /LPF; Mucus Urine 1+ /LPF
[2021-05-27 16:09] LABS: Troponin-I High Sensitivity < 3.5 ng/L (<3.5-35.0)
[2021-05-27 16:30] LABS: Influenza A PCR NEGATIVE (Negative); Influenza B PCR NEGATIVE (Negative); Resp Syncy Virus RNA Qual PCR NEGATIVE (Negative); SARS COV2 PCR INHOUSE NEGATIVE (Negative)
[2021-05-27] MEDS: Amoxicillin/Potassium Clav 875 MG TABLET PO (17:12)
== END 2021-05-27 17:17 | disposition home or self-care (01) ==
PROVIDERS: Emergency Provider Emergency Medicine
DX: J18.9 Pneumonia, unspecified organism (principal); D72.829 Elevated white blood cell count, unspecified; E11.9 Type 2 diabetes mellitus without complications; I10 Essential (primary) hypertension; Z20.822 Contact with and (suspected) exposure to COVID-19
CPT/HCPCS: 0241U; 36415; 71045; 80048; 81001; 82550; 83735; 84484; 85025; 93005; 99284

== ENCOUNTER 2021-07-11 12:06 | Outpatient (REF) | payer MEDICARE, MEDICAID, SELFPAY ==
--- NOTE | ~2021-07-11 | US_ITS ---
EXAMINATION: US RETROPERITONEAL COMPLETE (RENAL) CLINICAL INFORMATION: Abdominal pain. COMPARISON: CT abdomen and pelvis with contrast dated 04/16/2021. X-ray abdomen one view dated 11/15/2020. Renal ultrasound with bladder dated 09/30/2018. Renals only ultrasound dated 09/15/2018. KUB dated 08/26/2018. TECHNIQUE: Real-time imaging of the kidneys and bladder. FINDINGS: RIGHT KIDNEY: 11.7 x 5.8 x 5.5 cm (SAG x AP x TRV). The kidney is normal in size, contour, and echogenicity. Renal cortical thickness is normal. No calculi or focal parenchymal lesions. There are hypoechoic medullary pyramids, without hydronephrosis. LEFT KIDNEY: 11.3 x 6.1 x 5.3 cm (SAG x AP x TRV). The kidney is normal in size, contour, and echogenicity. Renal cortical thickness is normal. No calculi or focal parenchymal lesions. There are hypoechoic medullary pyramids, without hydronephrosis. BLADDER: Well distended. No mass, nodule or calculus is seen. Bilateral ureteral jets are demonstrated. Prevoid bladder volume is 184 mL. Postvoid bladder volume is 23 mL. Prostate volume is 20.8 mL. US/US retroperitoneal comp IMPRESSION: Unremarkable examination.
== END 2021-07-11 12:07 | disposition home or self-care (01) ==
LOC: HO.US 12:06
PROVIDERS: PCP Internal Medicine; Visit Provider Internal Medicine
DX: R10.9 Unspecified abdominal pain (principal)
CPT/HCPCS: 76770

== ENCOUNTER 2021-11-08 10:31 | Outpatient (REF) | payer MEDICARE, MEDICAID, SELFPAY ==
--- NOTE | ~2021-11-08 | XR_ITS ---
EXAMINATION: XR SHOULDER, RIGHT CLINICAL INFORMATION: Right shoulder pain COMPARISON: 05/27/2021 chest TECHNIQUE: AP external rotation, Grashey, scapular Y, and axillary views of the right shoulder. FINDINGS: No fracture or dislocation recognized. Degenerative changes identified acromioclavicular joint. 2 sclerotically bordered subcentimeter right humeral head lucencies are seen, one of which was included on 05/27/2021 chest radiograph is unchanged in appearance. Visualized ribs are intact. Visualized right lung is clear. XR/XR shoulder RT min 2V IMPRESSION: No acute bony pathology right shoulder. Degenerative type changes. Sclerotically bordered humeral head lucencies of indeterminate etiology.
== END 2021-11-08 10:32 | disposition home or self-care (01) ==
LOC: HO.XRAY 10:31
PROVIDERS: Absent Provider Internal Medicine; PCP Internal Medicine; Visit Provider Family Medicine
DX: M25.511 Pain in right shoulder (principal)
CPT/HCPCS: 73030

== ENCOUNTER → 2021-12-23 14:31 | Outpatient (BNVA) | payer MEDICARE, MEDICAID, SELFPAY | PROVIDERS: PCP Internal Medicine; Visit Provider Physician Assistant | DX: S46.001A Unspecified injury of muscle(s) and tendon(s) of the rotator cuff of right shoulder, initial encounter (principal) | CPT/HCPCS: 20610; 99202; J1020 ==

== ENCOUNTER 2022-01-07 15:05 | Outpatient (REF) | payer MEDICARE, MEDICAID, SELFPAY ==
--- NOTE | ~2022-01-07 | MR_ITS ---
EXAMINATION: MR SHOULDER WITHOUT CONTRAST, RIGHT CLINICAL INFORMATION: Patient reports right shoulder pain. COMPARISON: X-ray the right shoulder November 2021. TECHNIQUE: MRI of the shoulder without contrast was performed on a high-field scanner. FINDINGS: ROTATOR CUFF: Subscapularis: There is a full-thickness insertional tear involving at least the upper half of the tendon with retraction approximately 5 mm medial to lateral and extending at least 6 mm craniocaudal. There is attenuation of the more caudal portion of the subscapularis tendon likely reflecting additional articular sided tearing. There is mild atrophy and fatty infiltration of the muscle. Supraspinatus: There is a full-thickness insertional tear involving the anterior supraspinatus tendon. This results in retraction of the torn tendon and a tendon gap measuring 2.8 cm transverse and 1.1 cm AP. There is mild atrophy and fatty infiltration of muscle. Infraspinatus: Intact. Teres Minor: Intact. BICEPS: There is medial intra-articular dislocation of the biceps likely in part related to the subscapularis tear and possibly additional tearing to the biceps shayan. CORACOACROMIAL ARCH: The undersurface of the acromion is curved with a small subacromial spur . Mild osteoarthritis of acromioclavicular joint. BURSA: Increased fluid in subacromial subdeltoid bursa likely related to the rotator cuff tears. LABRUM/CAPSULE: Normal. GLENOHUMERAL JOINT/MARROW: Clustered cystic change in the greater tuberosity anteriorly. Glenohumeral joint is normal MR/MR shoulder RT wo con IMPRESSION: Full-thickness insertional tear of the upper portion of the subscapularis tendon. Possible additional partial tearing of the articular side of the more caudal aspect of the tendon. Medial intra-articular dislocation of the biceps likely in part related to the subscapularis tear and probable biceps sling injury. Full-thickness insertional tear of the anterior supraspinatus tendon. Mild osteoarthritis of the acromioclavicular joint. Small subacromial spur.
== END 2022-01-07 15:06 | disposition home or self-care (01) ==
LOC: HO.MRI 15:05
PROVIDERS: Visit Provider Physician Assistant
DX: S46.001A Unspecified injury of muscle(s) and tendon(s) of the rotator cuff of right shoulder, initial encounter (principal)
CPT/HCPCS: 73221

== ENCOUNTER → 2022-01-24 10:52 | Outpatient (BNVA) | payer MEDICARE, MEDICAID, SELFPAY | PROVIDERS: PCP Internal Medicine; Visit Provider Orthopaedic Surgery | DX: S46.811A Strain of other muscles, fascia and tendons at shoulder and upper arm level, right arm, initial encounter (principal) | CPT/HCPCS: 99212 ==